=== PATIENT | female | born 1955 | race Caucasian/White ===

== ENCOUNTER 2018-01-22 12:06 | Inpatient (IN) ==
--- NOTE | 2018-01-22 12:42 | ED ---
HPI General Chief complaint: Shortness of Breath/Dyspnea Stated complaint: Numbness in face ,hands,SOB,blood in urine Time Seen by Provider: 01/22/18 12:19 Source: patient and RN notes reviewed Mode of arrival: ambulatory Limitations: no limitations History of Present Illness HPI narrative: 62-year-old female presents to the emergency department for evaluation hematuria that started yesterday. She denies any abdominal pain or flank pain. She does have history of nephrolithiasis and UTI. She also reports chronic shortness of breath as well as chronic numbness that has been ongoing since September. She states she has seen her primary care physician on multiple occasions for this. She states the numbness is "all over". She denies any weakness or syncope. She reports chills, but no documented fever. She denies any chest pain. She denies any nausea or vomiting. No diarrhea. Patient reports history of diabetes, hypertension, endometrial cancer status post hysterectomy, CKD, nephrolithiasis. Moderate severity. Onset (ago): day(s) (1) Severity: moderate Relieving factors: none Exacerbating factors: none Associated symptoms: Reports shortness of breath and other ("all over numbness") ; Denies confusion, chest pain, headaches, nausea/vomiting, rash, seizure, syncope and weakness Treatments prior to arrival: Reports none Related Data Home Medications Medication Instructions Recorded Confirmed folic acid 1 mg PO DAILY 01/22/18 01/22/18 furosemide 40 mg PO DAILY 01/22/18 01/22/18 hydrochlorothiazide 25 mg PO DAILY 01/22/18 01/22/18 sitagliptin [Januvia] 50 mg PO DAILY 01/22/18 01/22/18 Previous Rx's Medication Instructions Recorded albuterol sulfate 1 inh INHALATION Q4H PRN #8.5 g 09/28/17 amlodipine [Norvasc] 10 mg PO DAILY 60 Days #120 tab 01/27/18 hydralazine 100 mg PO TID 30 Days #90 tab 01/27/18 nystatin 1 applicatio TOPICAL BID 30 Days 01/27/18 #30 g Allergies Allergy/AdvReac Type Severity Reaction Status Date / Time Opioids - Morphine Analogues Allergy Severe Difficulty Verified 01/22/18 12:35 Breathing Opioids-Meperidine and Allergy Severe Difficulty Verified 01/22/18 12:35 Related Breathing Opioids-Methadone and Related Allergy Severe Difficulty Verified 01/22/18 12:35 Breathing codeine AdvReac Severe UNABLE TO Verified 01/22/18 12:35 SLEEP FOR DAYS meperidine AdvReac Severe UNABLE TO Verified 01/22/18 12:35 SLEEP diphenhydramine AdvReac Unknown UNABLE TO Verified 01/22/18 12:35 SLEEP Review of Systems ROS: all other systems reviewed are negative [facility] Medical History Medical History Diabetes (Acute) Urinary tract infection (Acute) Surgical History Surgical History History of hysterectomy for cancer (Acute) Family History Family History Other Family history non-contributory Social History Social History Substance History: No History of Abuse Second Hand Smoke Exposure: No Smoking Status: Former smoker How Often Do You Have a Drink Containing Alcohol: Never Recent Travel in [facility] within the Last 8 Weeks: No Recent Out of Country Travel within the Last 8 Weeks: No Immunization History Tetanus Immunization: Never Vaccinated Exam Narrative Exam Narrative: GENERAL: Well-nourished, well-developed obese female patient, afebrile. SKIN: Focused skin assessment warm/dry. Patient has large pannus. She has some erythema to the left pannus consistent with candidiasis HEAD: Normocephalic. Atraumatic. ENT: Mucosa pink and moist. No erythema or exudates. No uvular edema. No uvular , palatal, or tonsillar deviation. Airway patent. Nasal turbinates appear normal without nasal blood, purulent drainage or septal hematoma. Bilateral tympanic membranes clear without erythema or perforation. EYES: No scleral icterus. No injection or drainage. PERRLA. EOM intact NECK: Supple, trachea midline. No JVD or lymphadenopathy. CARDIOVASCULAR: Regular rate and rhythm without murmurs, gallops, or rubs. RESPIRATORY: Breath sounds equal bilaterally. No accessory muscle use. Lung sounds are clear to auscultation GASTROINTESTINAL: Abdomen soft, non-tender, nondistended. No abdominal tenderness to palpation MUSCULOSKELETAL: No cyanosis, or edema. BACK: Nontender without obvious deformity. No CVA tenderness. NEUROLOGICAL: Awake and alert. Cranial nerves II through XII intact. Motor and sensory grossly within normal limits. Five out of 5 muscle strength in all muscle groups. Normal speech. Finger to nose is normal bilaterally. Heel to forman is normal bilaterally Course Initial Documented Vital Signs Temperature 97.4 F L 01/22/18 12:11 Pulse Rate 62 01/22/18 12:11 Respiratory Rate 26 H 01/22/18 12:11 Blood Pressure 131/89 01/22/18 12:11 Pulse Oximetry 98 01/22/18 12:11 Last Documented Vital Signs Temperature 97.2 F L 01/27/18 12:00 Pulse Rate 58 L 01/27/18 14:00 Respiratory Rate 20 01/27/18 12:00 Blood Pressure 132/62 01/27/18 14:00 Pulse Oximetry 98 01/27/18 12:00 Medical Decision Making MDM Narrative Medical decision making narrative: This 62-year-old female presents to the emergency department for evaluation of hematuria since yesterday with history of nephrolithiasis and UTI as well as "all over numbness" and chronic shortness of breath that is been ongoing since September,. IV access is obtained. EKG, CBC, CMP, BNP, CK, troponin, magnesium, PTT, PT/INR, UA ordered and pending. Chest x-ray, CT abdomen/pelvis without contrast are ordered and pending. CBC shows no acute abnormality. CMP shows hyperkalemia of 6.7, BUN 79, creatinine of 2.69, worsening from previous BUN of 31 and creatinine of 1.41 on September 27. BNP is 133. CK is 80. Troponin is less than 0.02. Magnesium is 2.2. PTT is 26.0. PT/INR is 10.2/1.0. UA shows large leukocyte esterase, many WBC clumps, innumerable RBC, WBC bur is contaminated with 22 squamous epithelial cells. Chest x-ray is stable. CT abdomen/pelvis shows Multiple left renal calculi with several stones identified in the renal pelvis. There is no significant hydronephrosis; Healed granulomatous disease; Nodular lobulated mass is again evident in the right breast; Small fat-containing umbilical hernia ; Status post hysterectomy. Patient is given insulin 5 units IV, amp is dextrose, amp of bicarb, albuterol, Kayexalate for hyperkalemia. Patient is given normal saline 1 L IV bolus. Patient's primary care physician is Dr. Jose Daniel Higgins. However, he cannot be contacted as the mailbox is full for him and there is no other way to get in touch with him. Hospitalist is paged for admission. Medical Screen Exam Complete: Yes Emergency Medical Condition: Yes Differential Diagnosis Differential Diagnosis: Nephrolithiasis versus UTI versus pyelonephritis versus pneumonia versus CHF versus electrolyte abnormality Medical Records Medical records reviewed: Yes I reviewed the patient's medical records. Lab Data Result diagrams: 01/26/18 13:02 01/26/18 13:02 Lab Results 01/22/18 01/22/18 01/22/18 Range/Units 12:10 12:10 12:10 WBC 7.1 (4.0-11.0) th/mm3 RBC 3.57 L (4.00-5.30) mil/mm3 Hgb 10.1 L (11.6-15.3) gm/dL Hct 31.3 L (35.0-46.0) % MCV 87.7 (80.0-100.0) fL MCH 28.3 (27.0-34.0) pg MCHC 32.3 (32.0-36.0) % RDW 18.1 H (11.6-17.2) % Plt Count 233 (150-450) th/mm3 MPV 8.9 (7.0-11.0) fL Neut % (Auto) 77.2 H (16.0-70.0) % Lymph % (Auto) 12.5 (9.0-44.0) % [place] % (Auto) 5.2 (0.0-8.0) % Eos % (Auto) 4.3 H (0.0-4.0) % Baso % (Auto) 0.8 (0.0-2.0) % Neut # (Auto) 5.5 (1.8-7.7) th/mm3 Lymph # (Auto) 0.9 L (1.0-4.8) th/mm3 [place] # (Auto) 0.4 (0.0-0.9) th/mm3 Eos # (Auto) 0.3 (0.0-0.4) th/mm3 Baso # (Auto) 0.1 (0.0-0.2) th/mm3 WBC Differential . Differential Comment Auto diff final PT 10.2 (9.8-11.6) sec INR 1.0 Ratio APTT 26.0 (23.4-31.7) sec Sodium 141 (136-145) meq/L Potassium 6.7 H* (3.5-5.1) meq/L Chloride 120 H (98-107) meq/L Carbon Dioxide 15.9 L (21.0-32.0) meq/L Anion Gap 5 (5-15) meq/L BUN 79 H (7-18) mg/dL Creatinine 2.69 H (0.50-1.00) mg/dL Estimated GFR 18 L (>89) mL/min POC Glucose (68-110) mg/dl Random Glucose 127 H (74-106) mg/dL Hemoglobin A1c (4.3-6.0) % Calcium 8.0 L (8.5-10.1) mg/dL Phosphorus (2.5-4.9) mg/dL Magnesium 2.2 (1.5-2.5) mg/dL Total Bilirubin 0.2 (0.2-1.0) mg/dL AST 16 (15-37) U/L ALT 29 (10-53) U/L Alkaline Phosphatase 97 (45-117) U/L Total Creatine Kinase 80 (26-192) U/L Troponin I Less than 0.02 L (0.02-0.05) ng/mL B-Natriuretic Peptide (0-100) pg/mL Total Protein 8.0 (6.4-8.2) g/dL Albumin 2.6 L (3.4-5.0) g/dL Urine Color (Yellw/Straw) Urine Clarity (Clear) Urine pH (5.0-8.5) Ur Specific Joshua (1.002-1.035) Urine Protein (Neg-Trace) mg/dL Urine Glucose (UA) (Negative) mg/dL Urine Ketones (Negative) mg/dL Urine Occult Blood (Negative) Urine Nitrate (Negative) Urine Bilirubin (Negative) Urine Urobilinogen (Less than 2) mg/dL Ur Leukocyte Esterase (Negative) Urine RBC (0-3) /hpf Urine WBC (0-5) /hpf Urine WBC Clumps (None) Ur Squamous Epith Cells (0-5) /hpf Ur Transition Epith Cell (None) /hpf Ur Renal Epithelial Cell (None) /hpf Urine Mucus (Occasional) /lpf Micro UA Comment Ur Microscopic Review Urine Culture Comments Ur Random Creatinine (27-300) mg/dL U Random Total Protein (0-11.8) mg/dL Protein/Creatinin Ratio (0.00-0.14) IgG (650-1610) mg/dL IgA (85-468) mg/dL IgM (45-276) mg/dL [place]/Lambda Ratio (1.57-3.93) ALETHEA Interpretation MOIRA Screen (Neg) MOIRA Titer (Neg) MOIRA Pattern (None) MOIRA Interpretation Anti-Proteinase 3 (<1.0) AI Anti-Myeloperoxidase (<1.0) AI Complement C3 (90-180) mg/dL Complement C4 (10-40) mg/dL [place] Light Chain Anal (170-370) mg/dL Lambda Light Chain Anal (90-210) mg/dL 01/22/18 01/22/18 01/22/18 Range/Units 12:10 14:00 16:35 WBC (4.0-11.0) th/mm3 RBC (4.00-5.30) mil/mm3 Hgb (11.6-15.3) gm/dL Hct (35.0-46.0) % MCV (80.0-100.0) fL MCH (27.0-34.0) pg MCHC (32.0-36.0) % RDW (11.6-17.2) % Plt Count (150-450) th/mm3 MPV (7.0-11.0) fL Neut % (Auto) (16.0-70.0) % Lymph % (Auto) (9.0-44.0) % [place] % (Auto) (0.0-8.0) % Eos % (Auto) (0.0-4.0) % Baso % (Auto) (0.0-2.0) % Neut # (Auto) (1.8-7.7) th/mm3 Lymph # (Auto) (1.0-4.8) th/mm3 [place] # (Auto) (0.0-0.9) th/mm3 Eos # (Auto) (0.0-0.4) th/mm3 Baso # (Auto) (0.0-0.2) th/mm3 WBC Differential Differential Comment PT (9.8-11.6) sec INR Ratio APTT (23.4-31.7) sec Sodium (136-145) meq/L Potassium 5.5 H D (3.5-5.1) meq/L Chloride (98-107) meq/L Carbon Dioxide (21.0-32.0) meq/L Anion Gap (5-15) meq/L BUN (7-18) mg/dL Creatinine (0.50-1.00) mg/dL Estimated GFR (>89) mL/min POC Glucose (68-110) mg/dl Random Glucose (74-106) mg/dL Hemoglobin A1c (4.3-6.0) % Calcium (8.5-10.1) mg/dL Phosphorus (2.5-4.9) mg/dL Magnesium (1.5-2.5) mg/dL Total Bilirubin (0.2-1.0) mg/dL AST (15-37) U/L ALT (10-53) U/L Alkaline Phosphatase (45-117) U/L Total Creatine Kinase (26-192) U/L Troponin I (0.02-0.05) ng/mL B-Natriuretic Peptide 133 H (0-100) pg/mL Total Protein (6.4-8.2) g/dL Albumin (3.4-5.0) g/dL Urine Color Red (Yellw/Straw) Urine Clarity Turbid H (Clear) Urine pH 7.0 (5.0-8.5) Ur Specific Joshua 1.014 (1.002-1.035) Urine Protein 500 or greater (Neg-Trace) mg/dL Urine Glucose (UA) Negative (Negative) mg/dL Urine Ketones Negative (Negative) mg/dL Urine Occult Blood Large H (Negative) Urine Nitrate Negative (Negative) Urine Bilirubin Negative (Negative) Urine Urobilinogen Less than 2 (Less than 2) mg/dL Ur Leukocyte Esterase Large H (Negative) Urine RBC (0-3) /hpf Urine WBC (0-5) /hpf Urine WBC Clumps Many H (None) Ur Squamous Epith Cells 22 (0-5) /hpf Ur Transition Epith Cell 3 (None) /hpf Ur Renal Epithelial Cell 1 (None) /hpf Urine Mucus Few H (Occasional) /lpf Micro UA Comment Culture indicated Ur Microscopic Review Not Reportable Urine Culture Comments Culture indicated Ur Random Creatinine (27-300) mg/dL U Random Total Protein (0-11.8) mg/dL Protein/Creatinin Ratio (0.00-0.14) IgG (650-1610) mg/dL IgA (85-468) mg/dL IgM (45-276) mg/dL [place]/Lambda Ratio (1.57-3.93) ALETHEA Interpretation MOIRA Screen (Neg) MOIRA Titer (Neg) MOIRA Pattern (None) MOIRA Interpretation Anti-Proteinase 3 (<1.0) AI Anti-Myeloperoxidase (<1.0) AI Complement C3 (90-180) mg/dL Complement C4 (10-40) mg/dL [place] Light Chain Anal (170-370) mg/dL Lambda Light Chain Anal (90-210) mg/dL 01/22/18 01/23/18 01/23/18 Range/Units 21:04 05:25 05:25 WBC (4.0-11.0) th/mm3 RBC (4.00-5.30) mil/mm3 Hgb (11.6-15.3) gm/dL Hct (35.0-46.0) % MCV (80.0-100.0) fL MCH (27.0-34.0) pg MCHC (32.0-36.0) % RDW (11.6-17.2) % Plt Count (150-450) th/mm3 MPV (7.0-11.0) fL Neut % (Auto) (16.0-70.0) % Lymph % (Auto) (9.0-44.0) % [place] % (Auto) (0.0-8.0) % Eos % (Auto) (0.0-4.0) % Baso % (Auto) (0.0-2.0) % Neut # (Auto) (1.8-7.7) th/mm3 Lymph # (Auto) (1.0-4.8) th/mm3 [place] # (Auto) (0.0-0.9) th/mm3 Eos # (Auto) (0.0-0.4) th/mm3 Baso # (Auto) (0.0-0.2) th/mm3 WBC Differential Differential Comment PT (9.8-11.6) sec INR Ratio APTT (23.4-31.7) sec Sodium 143 (136-145) meq/L Potassium 5.5 H (3.5-5.1) meq/L Chloride 119 H (98-107) meq/L Carbon Dioxide 16.6 L (21.0-32.0) meq/L Anion Gap 7 (5-15) meq/L BUN 69 H (7-18) mg/dL Creatinine 2.27 H (0.50-1.00) mg/dL Estimated GFR 22 L (>89) mL/min POC Glucose 113 H (68-110) mg/dl Random Glucose 114 H (74-106) mg/dL Hemoglobin A1c 8.2 H (4.3-6.0) % Calcium 7.7 L (8.5-10.1) mg/dL Phosphorus (2.5-4.9) mg/dL Magnesium (1.5-2.5) mg/dL Total Bilirubin (0.2-1.0) mg/dL AST (15-37) U/L ALT (10-53) U/L Alkaline Phosphatase (45-117) U/L Total Creatine Kinase (26-192) U/L Troponin I (0.02-0.05) ng/mL B-Natriuretic Peptide (0-100) pg/mL Total Protein (6.4-8.2) g/dL Albumin (3.4-5.0) g/dL Urine Color (Yellw/Straw) Urine Clarity (Clear) Urine pH (5.0-8.5) Ur Specific [place] (1.002-1.035) Urine Protein (Neg-Trace) mg/dL Urine Glucose (UA) (Negative) mg/dL Urine Ketones (Negative) mg/dL Urine Occult Blood (Negative) Urine Nitrate (Negative) Urine Bilirubin (Negative) Urine Urobilinogen (Less than 2) mg/dL Ur Leukocyte Esterase (Negative) Urine RBC (0-3) /hpf Urine WBC (0-5) /hpf Urine WBC Clumps (None) Ur Squamous Epith Cells (0-5) /hpf Ur Transition Epith Cell (None) /hpf Ur Renal Epithelial Cell (None) /hpf Urine Mucus (Occasional) /lpf Micro UA Comment Ur Microscopic Review Urine Culture Comments Ur Random Creatinine (27-300) mg/dL U Random Total Protein (0-11.8) mg/dL Protein/Creatinin Ratio (0.00-0.14) IgG (650-1610) mg/dL IgA (85-468) mg/dL IgM (45-276) mg/dL [place]/Lambda Ratio (1.57-3.93) ALETHEA Interpretation MOIRA Screen (Neg) MOIRA Titer (Neg) MOIRA Pattern (None) MOIRA Interpretation Anti-Proteinase 3 (<1.0) AI Anti-Myeloperoxidase (<1.0) AI Complement C3 (90-180) mg/dL Complement C4 (10-40) mg/dL [place] Light Chain Anal (170-370) mg/dL Lambda Light Chain Anal (90-210) mg/dL 01/23/18 01/23/18 01/23/18 Range/Units 11:26 11:26 11:51 WBC 7.3 (4.0-11.0) th/mm3 RBC 3.39 L (4.00-5.30) mil/mm3 Hgb 9.7 L (11.6-15.3) gm/dL Hct 29.2 L (35.0-46.0) % MCV 86.1 (80.0-100.0) fL MCH 28.7 (27.0-34.0) pg MCHC 33.3 (32.0-36.0) % RDW 18.3 H (11.6-17.2) % Plt Count 214 (150-450) th/mm3 MPV 9.1 (7.0-11.0) fL Neut % (Auto) 77.9 H (16.0-70.0) % Lymph % (Auto) 10.8 (9.0-44.0) % [place] % (Auto) 5.2 (0.0-8.0) % Eos % (Auto) 5.2 H (0.0-4.0) % Baso % (Auto) 0.9 (0.0-2.0) % Neut # (Auto) 5.7 (1.8-7.7) th/mm3 Lymph # (Auto) 0.8 L (1.0-4.8) th/mm3 [place] # (Auto) 0.4 (0.0-0.9) th/mm3 Eos # (Auto) 0.4 (0.0-0.4) th/mm3 Baso # (Auto) 0.1 (0.0-0.2) th/mm3 WBC Differential . Differential Comment Auto diff final PT (9.8-11.6) sec INR Ratio APTT (23.4-31.7) sec Sodium 141 (136-145) meq/L Potassium 5.1 (3.5-5.1) meq/L Chloride 117 H (98-107) meq/L Carbon Dioxide 18.8 L (21.0-32.0) meq/L Anion Gap 5 (5-15) meq/L BUN 63 H (7-18) mg/dL Creatinine 2.10 H (0.50-1.00) mg/dL Estimated GFR 24 L (>89) mL/min POC Glucose 199 H (68-110) mg/dl Random Glucose 199 H (74-106) mg/dL Hemoglobin A1c (4.3-6.0) % Calcium 8.0 L (8.5-10.1) mg/dL Phosphorus (2.5-4.9) mg/dL Magnesium (1.5-2.5) mg/dL Total Bilirubin 0.3 (0.2-1.0) mg/dL AST 18 (15-37) U/L ALT 27 (10-53) U/L Alkaline Phosphatase 100 (45-117) U/L Total Creatine Kinase (26-192) U/L Troponin I (0.02-0.05) ng/mL B-Natriuretic Peptide (0-100) pg/mL Total Protein 7.7 (6.4-8.2) g/dL Albumin 2.4 L (3.4-5.0) g/dL Urine Color (Yellw/Straw) Urine Clarity (Clear) Urine pH (5.0-8.5) Ur Specific [place] (1.002-1.035) Urine Protein (Neg-Trace) mg/dL Urine Glucose (UA) (Negative) mg/dL Urine Ketones (Negative) mg/dL Urine Occult Blood (Negative) Urine Nitrate (Negative) Urine Bilirubin (Negative) Urine Urobilinogen (Less than 2) mg/dL Ur Leukocyte Esterase (Negative) Urine RBC (0-3) /hpf Urine WBC (0-5) /hpf Urine WBC Clumps (None) Ur Squamous Epith Cells (0-5) /hpf Ur Transition Epith Cell (None) /hpf Ur Renal Epithelial Cell (None) /hpf Urine Mucus (Occasional) /lpf Micro UA Comment Ur Microscopic Review Urine Culture Comments Ur Random Creatinine (27-300) mg/dL U Random Total Protein (0-11.8) mg/dL Protein/Creatinin Ratio (0.00-0.14) IgG (650-1610) mg/dL IgA (85-468) mg/dL IgM (45-276) mg/dL [place]/Lambda Ratio (1.57-3.93) ALETHEA Interpretation MOIRA Screen (Neg) MOIRA Titer (Neg) MOIRA Pattern (None) MOIRA Interpretation Anti-Proteinase 3 (<1.0) AI Anti-Myeloperoxidase (<1.0) AI Complement C3 (90-180) mg/dL Complement C4 (10-40) mg/dL [place] Light Chain Anal (170-370) mg/dL Lambda Light Chain Anal (90-210) mg/dL 01/23/18 01/23/18 01/23/18 Range/Units 15:07 16:21 18:15 WBC (4.0-11.0) th/mm3 RBC (4.00-5.30) mil/mm3 Hgb (11.6-15.3) gm/dL Hct (35.0-46.0) % MCV (80.0-100.0) fL MCH (27.0-34.0) pg MCHC (32.0-36.0) % RDW (11.6-17.2) % Plt Count (150-450) th/mm3 MPV (7.0-11.0) fL Neut % (Auto) (16.0-70.0) % Lymph % (Auto) (9.0-44.0) % [place] % (Auto) (0.0-8.0) % Eos % (Auto) (0.0-4.0) % Baso % (Auto) (0.0-2.0) % Neut # (Auto) (1.8-7.7) th/mm3 Lymph # (Auto) (1.0-4.8) th/mm3 [place] # (Auto) (0.0-0.9) th/mm3 Eos # (Auto) (0.0-0.4) th/mm3 Baso # (Auto) (0.0-0.2) th/mm3 WBC Differential Differential Comment PT (9.8-11.6) sec INR Ratio APTT (23.4-31.7) sec Sodium (136-145) meq/L Potassium (3.5-5.1) meq/L Chloride (98-107) meq/L Carbon Dioxide (21.0-32.0) meq/L Anion Gap (5-15) meq/L BUN (7-18) mg/dL Creatinine (0.50-1.00) mg/dL Estimated GFR (>89) mL/min POC Glucose 135 H (68-110) mg/dl Random Glucose (74-106) mg/dL Hemoglobin A1c (4.3-6.0) % Calcium (8.5-10.1) mg/dL Phosphorus 4.3 (2.5-4.9) mg/dL Magnesium (1.5-2.5) mg/dL Total Bilirubin (0.2-1.0) mg/dL AST (15-37) U/L ALT (10-53) U/L Alkaline Phosphatase (45-117) U/L Total Creatine Kinase (26-192) U/L Troponin I (0.02-0.05) ng/mL B-Natriuretic Peptide (0-100) pg/mL Total Protein (6.4-8.2) g/dL Albumin (3.4-5.0) g/dL Urine Color ([place]ell[place]/Straw) Urine Clarity (Clear) Urine pH (5.0-8.5) Ur Specific [place] (1.002-1.035) Urine Protein (Neg-Trace) mg/dL Urine Glucose (UA) (Negative) mg/dL Urine Ketones (Negative) mg/dL Urine Occult Blood (Negative) Urine Nitrate (Negative) Urine Bilirubin (Negative) Urine Urobilinogen (Less than 2) mg/dL Ur Leukocyte Esterase (Negative) Urine RBC (0-3) /hpf Urine WBC (0-5) /hpf Urine WBC Clumps (None) Ur Squamous Epith Cells (0-5) /hpf Ur Transition Epith Cell (None) /hpf Ur Renal Epithelial Cell (None) /hpf Urine Mucus (Occasional) /lpf Micro UA Comment Ur Microscopic Review Urine Culture Comments Ur Random Creatinine 64 (27-300) mg/dL U Random Total Protein 310.9 H (0-11.8) mg/dL Protein/Creatinin Ratio 4.86 H (0.00-0.14) IgG 2030 H (650-1610) mg/dL IgA 426 (85-468) mg/dL IgM 63 (45-276) mg/dL [place]/Lambda Ratio 1.75 (1.57-3.93) ALETHEA Interpretation MOIRA Screen (Neg) MOIRA Titer (Neg) MOIRA Pattern (None) MOIRA Interpretation Anti-Proteinase 3 (<1.0) AI Anti-Myeloperoxidase (<1.0) AI Complement C3 111 (90-180) mg/dL Complement C4 29 (10-40) mg/dL [place] Light Chain Anal 495 H (170-370) mg/dL Lambda Light Chain Anal 283 H (90-210) mg/dL 01/23/18 01/24/18 01/24/18 Range/Units 20:50 04:56 04:56 WBC (4.0-11.0) th/mm3 RBC (4.00-5.30) mil/mm3 Hgb (11.6-15.3) gm/dL Hct (35.0-46.0) % MCV (80.0-100.0) fL MCH (27.0-34.0) pg MCHC (32.0-36.0) % RDW (11.6-17.2) % Plt Count (150-450) th/mm3 MPV (7.0-11.0) fL Neut % (Auto) (16.0-70.0) % Lymph % (Auto) (9.0-44.0) % [place] % (Auto) (0.0-8.0) % Eos % (Auto) (0.0-4.0) % Baso % (Auto) (0.0-2.0) % Neut # (Auto) (1.8-7.7) th/mm3 Lymph # (Auto) (1.0-4.8) th/mm3 [place] # (Auto) (0.0-0.9) th/mm3 Eos # (Auto) (0.0-0.4) th/mm3 Baso # (Auto) (0.0-0.2) th/mm3 WBC Differential Differential Comment PT (9.8-11.6) sec INR Ratio APTT (23.4-31.7) sec Sodium 143 (136-145) meq/L Potassium 5.0 (3.5-5.1) meq/L Chloride 116 H (98-107) meq/L Carbon Dioxide 19.9 L (21.0-32.0) meq/L Anion Gap 7 (5-15) meq/L BUN 58 H (7-18) mg/dL Creatinine 2.04 H (0.50-1.00) mg/dL Estimated GFR 25 L (>89) mL/min POC Glucose 160 H (68-110) mg/dl Random Glucose 121 H (74-106) mg/dL Hemoglobin A1c (4.3-6.0) % Calcium 8.1 L (8.5-10.1) mg/dL Phosphorus (2.5-4.9) mg/dL Magnesium (1.5-2.5) mg/dL Total Bilirubin (0.2-1.0) mg/dL AST (15-37) U/L ALT (10-53) U/L Alkaline Phosphatase (45-117) U/L Total Creatine Kinase (26-192) U/L Troponin I (0.02-0.05) ng/mL B-Natriuretic Peptide (0-100) pg/mL Total Protein (6.4-8.2) g/dL Albumin (3.4-5.0) g/dL Urine Color (Yellw/Straw) Urine Clarity (Clear) Urine pH (5.0-8.5) Ur Specific [place] (1.002-1.035) Urine Protein (Neg-Trace) mg/dL Urine Glucose (UA) (Negative) mg/dL Urine Ketones (Negative) mg/dL Urine Occult Blood (Negative) Urine Nitrate (Negative) Urine Bilirubin (Negative) Urine Urobilinogen (Less than 2) mg/dL Ur Leukocyte Esterase (Negative) Urine RBC (0-3) /hpf Urine WBC (0-5) /hpf Urine WBC Clumps (None) Ur Squamous Epith Cells (0-5) /hpf Ur Transition Epith Cell (None) /hpf Ur Renal Epithelial Cell (None) /hpf Urine Mucus (Occasional) /lpf Micro UA Comment Ur Microscopic Review Urine Culture Comments Ur Random Creatinine (27-300) mg/dL U Random Total Protein (0-11.8) mg/dL Protein/Creatinin Ratio (0.00-0.14) IgG (650-1610) mg/dL IgA (85-468) mg/dL IgM (45-276) mg/dL [place]/Lambda Ratio (1.57-3.93) ALETHEA Interpretation MOIRA Screen Pos H (Neg) MOIRA Titer 1:80 H (Neg) MOIRA Pattern Diffuse H (None) MOIAR Interpretation Anti-Proteinase 3 (<1.0) AI Anti-Myeloperoxidase (<1.0) AI Complement C3 (90-180) mg/dL Complement C4 (10-40) mg/dL [place] Light Chain Anal (170-370) mg/dL Lambda Light Chain Anal (90-210) mg/dL 01/24/18 01/24/18 01/24/18 Range/Units 11:45 11:45 11:45 WBC 7.0 (4.0-11.0) th/mm3 RBC 3.47 L (4.00-5.30) mil/mm3 Hgb 9.8 L (11.6-15.3) gm/dL Hct 29.9 L (35.0-46.0) % MCV 86.3 (80.0-100.0) fL MCH 28.3 (27.0-34.0) pg MCHC 32.8 (32.0-36.0) % RDW 17.6 H (11.6-17.2) % Plt Count 192 (150-450) th/mm3 MPV 9.5 (7.0-11.0) fL Neut % (Auto) 76.1 H (16.0-70.0) % Lymph % (Auto) 12.5 (9.0-44.0) % [place] % (Auto) 4.9 (0.0-8.0) % Eos % (Auto) 5.8 H (0.0-4.0) % Baso % (Auto) 0.7 (0.0-2.0) % Neut # (Auto) 5.3 (1.8-7.7) th/mm3 Lymph # (Auto) 0.9 L (1.0-4.8) th/mm3 [place] # (Auto) 0.3 (0.0-0.9) th/mm3 Eos # (Auto) 0.4 (0.0-0.4) th/mm3 Baso # (Auto) 0.0 (0.0-0.2) th/mm3 WBC Differential . Differential Comment Auto diff final PT (9.8-11.6) sec INR Ratio APTT (23.4-31.7) sec Sodium 142 (136-145) meq/L Potassium 5.0 (3.5-5.1) meq/L Chloride 114 H (98-107) meq/L Carbon Dioxide 21.0 (21.0-32.0) meq/L Anion Gap 7 (5-15) meq/L BUN 54 H (7-18) mg/dL Creatinine 1.97 H (0.50-1.00) mg/dL Estimated GFR 26 L (>89) mL/min POC Glucose (68-110) mg/dl Random Glucose 178 H (74-106) mg/dL Hemoglobin A1c (4.3-6.0) % Calcium 8.3 L (8.5-10.1) mg/dL Phosphorus (2.5-4.9) mg/dL Magnesium (1.5-2.5) mg/dL Total Bilirubin 0.2 (0.2-1.0) mg/dL AST 12 L (15-37) U/L ALT 25 (10-53) U/L Alkaline Phosphatase 101 (45-117) U/L Total Creatine Kinase (26-192) U/L Troponin I (0.02-0.05) ng/mL B-Natriuretic Peptide (0-100) pg/mL Total Protein 7.7 (6.4-8.2) g/dL Albumin 2.5 L (3.4-5.0) g/dL Urine Color (Yellw/Straw) Urine Clarity (Clear) Urine pH (5.0-8.5) Ur Specific [place] (1.002-1.035) Urine Protein (Neg-Trace) mg/dL Urine Glucose (UA) (Negative) mg/dL Urine Ketones (Negative) mg/dL Urine Occult Blood (Negative) Urine Nitrate (Negative) Urine Bilirubin (Negative) Urine Urobilinogen (Less than 2) mg/dL Ur Leukocyte Esterase (Negative) Urine RBC (0-3) /hpf Urine WBC (0-5) /hpf Urine WBC Clumps (None) Ur Squamous Epith Cells (0-5) /hpf Ur Transition Epith Cell (None) /hpf Ur Renal Epithelial Cell (None) /hpf Urine Mucus (Occasional) /lpf Micro UA Comment Ur Microscopic Review Urine Culture Comments Ur Random Creatinine (27-300) mg/dL U Random Total Protein (0-11.8) mg/dL Protein/Creatinin Ratio (0.00-0.14) IgG (650-1610) mg/dL IgA (85-468) mg/dL IgM (45-276) mg/dL [place]/Lambda Ratio (1.57-3.93) ALETHEA Interpretation MOIRA Screen (Neg) MOIRA Titer (Neg) MOIRA Pattern (None) MOIRA Interpretation Anti-Proteinase 3 Less than 1.0 (<1.0) AI Anti-Myeloperoxidase Less than 1.0 (<1.0) AI Complement C3 (90-180) mg/dL Complement C4 (10-40) mg/dL [place] Light Chain Anal (170-370) mg/dL Lambda Light Chain Anal (90-210) mg/dL 01/24/18 01/24/18 01/24/18 Range/Units 12:29 17:27 20:12 WBC (4.0-11.0) th/mm3 RBC (4.00-5.30) mil/mm3 Hgb (11.6-15.3) gm/dL Hct (35.0-46.0) % MCV (80.0-100.0) fL MCH (27.0-34.0) pg MCHC (32.0-36.0) % RDW (11.6-17.2) % Plt Count (150-450) th/mm3 MPV (7.0-11.0) fL Neut % (Auto) (16.0-70.0) % Lymph % (Auto) (9.0-44.0) % [place] % (Auto) (0.0-8.0) % Eos % (Auto) (0.0-4.0) % Baso % (Auto) (0.0-2.0) % Neut # (Auto) (1.8-7.7) th/mm3 Lymph # (Auto) (1.0-4.8) th/mm3 [place] # (Auto) (0.0-0.9) th/mm3 Eos # (Auto) (0.0-0.4) th/mm3 Baso # (Auto) (0.0-0.2) th/mm3 WBC Differential Differential Comment PT (9.8-11.6) sec INR Ratio APTT (23.4-31.7) sec Sodium (136-145) meq/L Potassium (3.5-5.1) meq/L Chloride (98-107) meq/L Carbon Dioxide (21.0-32.0) meq/L Anion Gap (5-15) meq/L BUN (7-18) mg/dL Creatinine (0.50-1.00) mg/dL Estimated GFR (>89) mL/min POC Glucose 213 H 84 115 H (68-110) mg/dl Random Glucose (74-106) mg/dL Hemoglobin A1c (4.3-6.0) % Calcium (8.5-10.1) mg/dL Phosphorus (2.5-4.9) mg/dL Magnesium (1.5-2.5) mg/dL Total Bilirubin (0.2-1.0) mg/dL AST (15-37) U/L ALT (10-53) U/L Alkaline Phosphatase (45-117) U/L Total Creatine Kinase (26-192) U/L Troponin I (0.02-0.05) ng/mL B-Natriuretic Peptide (0-100) pg/mL Total Protein (6.4-8.2) g/dL Albumin (3.4-5.0) g/dL Urine Color (Yellw/Straw) Urine Clarity (Clear) Urine pH (5.0-8.5) Ur Specific [place] (1.002-1.035) Urine Protein (Neg-Trace) mg/dL Urine Glucose (UA) (Negative) mg/dL Urine Ketones (Negative) mg/dL Urine Occult Blood (Negative) Urine Nitrate (Negative) Urine Bilirubin (Negative) Urine Urobilinogen (Less than 2) mg/dL Ur Leukocyte Esterase (Negative) Urine RBC (0-3) /hpf Urine WBC (0-5) /hpf Urine WBC Clumps (None) Ur Squamous Epith Cells (0-5) /hpf Ur Transition Epith Cell (None) /hpf Ur Renal Epithelial Cell (None) /hpf Urine Mucus (Occasional) /lpf Micro UA Comment Ur Microscopic Review Urine Culture Comments Ur Random Creatinine (27-300) mg/dL U Random Total Protein (0-11.8) mg/dL Protein/Creatinin Ratio (0.00-0.14) IgG (650-1610) mg/dL IgA (85-468) mg/dL IgM (45-276) mg/dL [place]/Lambda Ratio (1.57-3.93) ALETHEA Interpretation MOIRA Screen (Neg) MOIRA Titer (Neg) MOIRA Pattern (None) MOIRA Interpretation Anti-Proteinase 3 (<1.0) AI Anti-Myeloperoxidase (<1.0) AI Complement C3 (90-180) mg/dL Complement C4 (10-40) mg/dL [place] Light Chain Anal (170-370) mg/dL Lambda Light Chain Anal (90-210) mg/dL 01/25/18 01/25/18 01/25/18 Range/Units 00:05 08:17 10:46 WBC 7.1 (4.0-11.0) th/mm3 RBC 3.75 L (4.00-5.30) mil/mm3 Hgb 10.5 L (11.6-15.3) gm/dL Hct 32.6 L (35.0-46.0) % MCV 87.0 (80.0-100.0) fL MCH 28.1 (27.0-34.0) pg MCHC 32.3 (32.0-36.0) % RDW 18.1 H (11.6-17.2) % Plt Count 208 (150-450) th/mm3 MPV 9.5 (7.0-11.0) fL Neut % (Auto) 76.2 H (16.0-70.0) % Lymph % (Auto) 11.6 (9.0-44.0) % [place] % (Auto) 5.5 (0.0-8.0) % Eos % (Auto) 6.1 H (0.0-4.0) % Baso % (Auto) 0.6 (0.0-2.0) % Neut # (Auto) 5.4 (1.8-7.7) th/mm3 Lymph # (Auto) 0.8 L (1.0-4.8) th/mm3 [place] # (Auto) 0.4 (0.0-0.9) th/mm3 Eos # (Auto) 0.4 (0.0-0.4) th/mm3 Baso # (Auto) 0.0 (0.0-0.2) th/mm3 WBC Differential . Differential Comment Auto diff final PT (9.8-11.6) sec INR Ratio APTT (23.4-31.7) sec Sodium (136-145) meq/L Potassium (3.5-5.1) meq/L Chloride (98-107) meq/L Carbon Dioxide (21.0-32.0) meq/L Anion Gap (5-15) meq/L BUN (7-18) mg/dL Creatinine (0.50-1.00) mg/dL Estimated GFR (>89) mL/min POC Glucose 121 H 122 H (68-110) mg/dl Random Glucose (74-106) mg/dL Hemoglobin A1c (4.3-6.0) % Calcium (8.5-10.1) mg/dL Phosphorus (2.5-4.9) mg/dL Magnesium (1.5-2.5) mg/dL Total Bilirubin (0.2-1.0) mg/dL AST (15-37) U/L ALT (10-53) U/L Alkaline Phosphatase (45-117) U/L Total Creatine Kinase (26-192) U/L Troponin I (0.02-0.05) ng/mL B-Natriuretic Peptide (0-100) pg/mL Total Protein (6.4-8.2) g/dL Albumin (3.4-5.0) g/dL Urine Color (Yellw/Straw) Urine Clarity (Clear) Urine pH (5.0-8.5) Ur Specific [place] (1.002-1.035) Urine Protein (Neg-Trace) mg/dL Urine Glucose (UA) (Negative) mg/dL Urine Ketones (Negative) mg/dL Urine Occult Blood (Negative) Urine Nitrate (Negative) Urine Bilirubin (Negative) Urine Urobilinogen (Less than 2) mg/dL Ur Leukocyte Esterase (Negative) Urine RBC (0-3) /hpf Urine WBC (0-5) /hpf Urine WBC Clumps (None) Ur Squamous Epith Cells (0-5) /hpf Ur Transition Epith Cell (None) /hpf Ur Renal Epithelial Cell (None) /hpf Urine Mucus (Occasional) /lpf Micro UA Comment Ur Microscopic Review Urine Culture Comments Ur Random Creatinine (27-300) mg/dL U Random Total Protein (0-11.8) mg/dL Protein/Creatinin Ratio (0.00-0.14) IgG (650-1610) mg/dL IgA (85-468) mg/dL IgM (45-276) mg/dL [place]/Lambda Ratio (1.57-3.93) ALETHEA Interpretation MOIRA Screen (Neg) MOIRA Titer (Neg) MOIRA Pattern (None) MOIRA Interpretation Anti-Proteinase 3 (<1.0) AI Anti-Myeloperoxidase (<1.0) AI Complement C3 (90-180) mg/dL Complement C4 (10-40) mg/dL [place] Light Chain Anal (170-370) mg/dL Lambda Light Chain Anal (90-210) mg/dL 01/25/18 01/25/18 01/25/18 Range/Units 10:46 11:58 16:54 WBC (4.0-11.0) th/mm3 RBC (4.00-5.30) mil/mm3 Hgb (11.6-15.3) gm/dL Hct (35.0-46.0) % MCV (80.0-100.0) fL MCH (27.0-34.0) pg MCHC (32.0-36.0) % RDW (11.6-17.2) % Plt Count (150-450) th/mm3 MPV (7.0-11.0) fL Neut % (Auto) (16.0-70.0) % Lymph % (Auto) (9.0-44.0) % [place] % (Auto) (0.0-8.0) % Eos % (Auto) (0.0-4.0) % Baso % (Auto) (0.0-2.0) % Neut # (Auto) (1.8-7.7) th/mm3 Lymph # (Auto) (1.0-4.8) th/mm3 [place] # (Auto) (0.0-0.9) th/mm3 Eos # (Auto) (0.0-0.4) th/mm3 Baso # (Auto) (0.0-0.2) th/mm3 WBC Differential Differential Comment PT (9.8-11.6) sec INR Ratio APTT (23.4-31.7) sec Sodium 141 (136-145) meq/L Potassium 4.7 (3.5-5.1) meq/L Chloride 112 H (98-107) meq/L Carbon Dioxide 21.9 (21.0-32.0) meq/L Anion Gap 7 (5-15) meq/L BUN 49 H (7-18) mg/dL Creatinine 1.93 H (0.50-1.00) mg/dL Estimated GFR 26 L (>89) mL/min POC Glucose 180 H 120 H (68-110) mg/dl Random Glucose 165 H (74-106) mg/dL Hemoglobin A1c (4.3-6.0) % Calcium 8.5 (8.5-10.1) mg/dL Phosphorus (2.5-4.9) mg/dL Magnesium (1.5-2.5) mg/dL Total Bilirubin 0.2 (0.2-1.0) mg/dL AST 13 L (15-37) U/L ALT 24 (10-53) U/L Alkaline Phosphatase 108 (45-117) U/L Total Creatine Kinase (26-192) U/L Troponin I (0.02-0.05) ng/mL B-Natriuretic Peptide (0-100) pg/mL Total Protein 8.2 (6.4-8.2) g/dL Albumin 2.5 L (3.4-5.0) g/dL Urine Color (Yellw/Straw) Urine Clarity (Clear) Urine pH (5.0-8.5) Ur Specific [place] (1.002-1.035) Urine Protein (Neg-Trace) mg/dL Urine Glucose (UA) (Negative) mg/dL Urine Ketones (Negative) mg/dL Urine Occult Blood (Negative) Urine Nitrate (Negative) Urine Bilirubin (Negative) Urine Urobilinogen (Less than 2) mg/dL Ur Leukocyte Esterase (Negative) Urine RBC (0-3) /hpf Urine WBC (0-5) /hpf Urine WBC Clumps (None) Ur Squamous Epith Cells (0-5) /hpf Ur Transition Epith Cell (None) /hpf Ur Renal Epithelial Cell (None) /hpf Urine Mucus (Occasional) /lpf Micro UA Comment Ur Microscopic Review Urine Culture Comments Ur Random Creatinine (27-300) mg/dL U Random Total Protein (0-11.8) mg/dL Protein/Creatinin Ratio (0.00-0.14) IgG (650-1610) mg/dL IgA (85-468) mg/dL IgM (45-276) mg/dL [place]/Lambda Ratio (1.57-3.93) ALETHEA Interpretation MOIRA Screen (Neg) MOIRA Titer (Neg) MOIRA Pattern (None) MOIRA Interpretation Anti-Proteinase 3 (<1.0) AI Anti-Myeloperoxidase (<1.0) AI Complement C3 (90-180) mg/dL Complement C4 (10-40) mg/dL [place] Light Chain Anal (170-370) mg/dL Lambda Light Chain Anal (90-210) mg/dL 01/25/18 01/25/18 01/26/18 Range/Units 21:18 23:51 07:49 WBC (4.0-11.0) th/mm3 RBC (4.00-5.30) mil/mm3 Hgb (11.6-15.3) gm/dL Hct (35.0-46.0) % MCV (80.0-100.0) fL MCH (27.0-34.0) pg MCHC (32.0-36.0) % RDW (11.6-17.2) % Plt Count (150-450) th/mm3 MPV (7.0-11.0) fL Neut % (Auto) (16.0-70.0) % Lymph % (Auto) (9.0-44.0) % [place] % (Auto) (0.0-8.0) % Eos % (Auto) (0.0-4.0) % Baso % (Auto) (0.0-2.0) % Neut # (Auto) (1.8-7.7) th/mm3 Lymph # (Auto) (1.0-4.8) th/mm3 [place] # (Auto) (0.0-0.9) th/mm3 Eos # (Auto) (0.0-0.4) th/mm3 Baso # (Auto) (0.0-0.2) th/mm3 WBC Differential Differential Comment PT (9.8-11.6) sec INR Ratio APTT (23.4-31.7) sec Sodium (136-145) meq/L Potassium (3.5-5.1) meq/L Chloride (98-107) meq/L Carbon Dioxide (21.0-32.0) meq/L Anion Gap (5-15) meq/L BUN (7-18) mg/dL Creatinine (0.50-1.00) mg/dL Estimated GFR (>89) mL/min POC Glucose 173 H 163 H 136 H (68-110) mg/dl Random Glucose (74-106) mg/dL Hemoglobin A1c (4.3-6.0) % Calcium (8.5-10.1) mg/dL Phosphorus (2.5-4.9) mg/dL Magnesium (1.5-2.5) mg/dL Total Bilirubin (0.2-1.0) mg/dL AST (15-37) U/L ALT (10-53) U/L Alkaline Phosphatase (45-117) U/L Total Creatine Kinase (26-192) U/L Troponin I (0.02-0.05) ng/mL B-Natriuretic Peptide (0-100) pg/mL Total Protein (6.4-8.2) g/dL Albumin (3.4-5.0) g/dL Urine Color (Yellw/Straw) Urine Clarity (Clear) Urine pH (5.0-8.5) Ur Specific [place] (1.002-1.035) Urine Protein (Neg-Trace) mg/dL Urine Glucose (UA) (Negative) mg/dL Urine Ketones (Negative) mg/dL Urine Occult Blood (Negative) Urine Nitrate (Negative) Urine Bilirubin (Negative) Urine Urobilinogen (Less than 2) mg/dL Ur Leukocyte Esterase (Negative) Urine RBC (0-3) /hpf Urine WBC (0-5) /hpf Urine WBC Clumps (None) Ur Squamous Epith Cells (0-5) /hpf Ur Transition Epith Cell (None) /hpf Ur Renal Epithelial Cell (None) /hpf Urine Mucus (Occasional) /lpf Micro UA Comment Ur Microscopic Review Urine Culture Comments Ur Random Creatinine (27-300) mg/dL U Random Total Protein (0-11.8) mg/dL Protein/Creatinin Ratio (0.00-0.14) IgG (650-1610) mg/dL IgA (85-468) mg/dL IgM (45-276) mg/dL [place]/Lambda Ratio (1.57-3.93) ALETHEA Interpretation MOIRA Screen (Neg) MOIRA Titer (Neg) MOIRA Pattern (None) MOIRA Interpretation Anti-Proteinase 3 (<1.0) AI Anti-Myeloperoxidase (<1.0) AI Complement C3 (90-180) mg/dL Complement C4 (10-40) mg/dL [place] Light Chain Anal (170-370) mg/dL Lambda Light Chain Anal (90-210) mg/dL 01/26/18 01/26/18 01/26/18 Range/Units 12:31 13:02 13:02 WBC 8.4 (4.0-11.0) th/mm3 RBC 3.66 L (4.00-5.30) mil/mm3 Hgb 10.4 L (11.6-15.3) gm/dL Hct 31.6 L (35.0-46.0) % MCV 86.3 (80.0-100.0) fL MCH 28.5 (27.0-34.0) pg MCHC 33.1 (32.0-36.0) % RDW 17.9 H (11.6-17.2) % Plt Count 195 (150-450) th/mm3 MPV 9.4 (7.0-11.0) fL Neut % (Auto) 76.4 H (16.0-70.0) % Lymph % (Auto) 12.2 (9.0-44.0) % [place] % (Auto) 5.1 (0.0-8.0) % Eos % (Auto) 5.7 H (0.0-4.0) % Baso % (Auto) 0.6 (0.0-2.0) % Neut # (Auto) 6.4 (1.8-7.7) th/mm3 Lymph # (Auto) 1.0 (1.0-4.8) th/mm3 [place] # (Auto) 0.4 (0.0-0.9) th/mm3 Eos # (Auto) 0.5 H (0.0-0.4) th/mm3 Baso # (Auto) 0.0 (0.0-0.2) th/mm3 WBC Differential . Differential Comment Auto diff final PT (9.8-11.6) sec INR Ratio APTT (23.4-31.7) sec Sodium 140 (136-145) meq/L Potassium 4.9 (3.5-5.1) meq/L Chloride 110 H (98-107) meq/L Carbon Dioxide 21.3 (21.0-32.0) meq/L Anion Gap 9 (5-15) meq/L BUN 50 H (7-18) mg/dL Creatinine 1.96 H (0.50-1.00) mg/dL Estimated GFR 26 L (>89) mL/min POC Glucose 152 H (68-110) mg/dl Random Glucose 136 H (74-106) mg/dL Hemoglobin A1c (4.3-6.0) % Calcium 8.7 (8.5-10.1) mg/dL Phosphorus (2.5-4.9) mg/dL Magnesium (1.5-2.5) mg/dL Total Bilirubin 0.2 (0.2-1.0) mg/dL AST 14 L (15-37) U/L ALT 24 (10-53) U/L Alkaline Phosphatase 105 (45-117) U/L Total Creatine Kinase (26-192) U/L Troponin I (0.02-0.05) ng/mL B-Natriuretic Peptide (0-100) pg/mL Total Protein 8.4 H (6.4-8.2) g/dL Albumin 2.6 L (3.4-5.0) g/dL Urine Color (Yellw/Straw) Urine Clarity (Clear) Urine pH (5.0-8.5) Ur Specific [place] (1.002-1.035) Urine Protein (Neg-Trace) mg/dL Urine Glucose (UA) (Negative) mg/dL Urine Ketones (Negative) mg/dL Urine Occult Blood (Negative) Urine Nitrate (Negative) Urine Bilirubin (Negative) Urine Urobilinogen (Less than 2) mg/dL Ur Leukocyte Esterase (Negative) Urine RBC (0-3) /hpf Urine WBC (0-5) /hpf Urine WBC Clumps (None) Ur Squamous Epith Cells (0-5) /hpf Ur Transition Epith Cell (None) /hpf Ur Renal Epithelial Cell (None) /hpf Urine Mucus (Occasional) /lpf Micro UA Comment Ur Microscopic Review Urine Culture Comments Ur Random Creatinine (27-300) mg/dL U Random Total Protein (0-11.8) mg/dL Protein/Creatinin Ratio (0.00-0.14) IgG (650-1610) mg/dL IgA (85-468) mg/dL IgM (45-276) mg/dL [place]/Lambda Ratio (1.57-3.93) ALETHEA Interpretation MOIRA Screen (Neg) MOIRA Titer (Neg) MOIRA Pattern (None) MOIRA Interpretation Anti-Proteinase 3 (<1.0) AI Anti-Myeloperoxidase (<1.0) AI Complement C3 (90-180) mg/dL Complement C4 (10-40) mg/dL [place] Light Chain Anal (170-370) mg/dL Lambda Light Chain Anal (90-210) mg/dL 01/26/18 01/26/18 01/27/18 Range/Units 16:54 20:00 08:27 WBC (4.0-11.0) th/mm3 RBC (4.00-5.30) mil/mm3 Hgb (11.6-15.3) gm/dL Hct (35.0-46.0) % MCV (80.0-100.0) fL MCH (27.0-34.0) pg MCHC (32.0-36.0) % RDW (11.6-17.2) % Plt Count (150-450) th/mm3 MPV (7.0-11.0) fL Neut % (Auto) (16.0-70.0) % Lymph % (Auto) (9.0-44.0) % [place] % (Auto) (0.0-8.0) % Eos % (Auto) (0.0-4.0) % Baso % (Auto) (0.0-2.0) % Neut # (Auto) (1.8-7.7) th/mm3 Lymph # (Auto) (1.0-4.8) th/mm3 [place] # (Auto) (0.0-0.9) th/mm3 Eos # (Auto) (0.0-0.4) th/mm3 Baso # (Auto) (0.0-0.2) th/mm3 WBC Differential Differential Comment PT (9.8-11.6) sec INR Ratio APTT (23.4-31.7) sec Sodium (136-145) meq/L Potassium (3.5-5.1) meq/L Chloride (98-107) meq/L Carbon Dioxide (21.0-32.0) meq/L Anion Gap (5-15) meq/L BUN (7-18) mg/dL Creatinine (0.50-1.00) mg/dL Estimated GFR (>89) mL/min POC Glucose 137 H 179 H 133 H (68-110) mg/dl Random Glucose (74-106) mg/dL Hemoglobin A1c (4.3-6.0) % Calcium (8.5-10.1) mg/dL Phosphorus (2.5-4.9) mg/dL Magnesium (1.5-2.5) mg/dL Total Bilirubin (0.2-1.0) mg/dL AST (15-37) U/L ALT (10-53) U/L Alkaline Phosphatase (45-117) U/L Total Creatine Kinase (26-192) U/L Troponin I (0.02-0.05) ng/mL B-Natriuretic Peptide (0-100) pg/mL Total Protein (6.4-8.2) g/dL Albumin (3.4-5.0) g/dL Urine Color (Yellw/Straw) Urine Clarity (Clear) Urine pH (5.0-8.5) Ur Specific [place] (1.002-1.035) Urine Protein (Neg-Trace) mg/dL Urine Glucose (UA) (Negative) mg/dL Urine Ketones (Negative) mg/dL Urine Occult Blood (Negative) Urine Nitrate (Negative) Urine Bilirubin (Negative) Urine Urobilinogen (Less than 2) mg/dL Ur Leukocyte Esterase (Negative) Urine RBC (0-3) /hpf Urine WBC (0-5) /hpf Urine WBC Clumps (None) Ur Squamous Epith Cells (0-5) /hpf Ur Transition Epith Cell (None) /hpf Ur Renal Epithelial Cell (None) /hpf Urine Mucus (Occasional) /lpf Micro UA Comment Ur Microscopic Review Urine Culture Comments Ur Random Creatinine (27-300) mg/dL U Random Total Protein (0-11.8) mg/dL Protein/Creatinin Ratio (0.00-0.14) IgG (650-1610) mg/dL IgA (85-468) mg/dL IgM (45-276) mg/dL [place]/Lambda Ratio (1.57-3.93) ALETHEA Interpretation MOIRA Screen (Neg) MOIRA Titer (Neg) MOIRA Pattern (None) MOIRA Interpretation Anti-Proteinase 3 (<1.0) AI Anti-Myeloperoxidase (<1.0) AI Complement C3 (90-180) mg/dL Complement C4 (10-40) mg/dL [place] Light Chain Anal (170-370) mg/dL Lambda Light Chain Anal (90-210) mg/dL 01/27/18 Range/Units 12:22 WBC (4.0-11.0) th/mm3 RBC (4.00-5.30) mil/mm3 Hgb (11.6-15.3) gm/dL Hct (35.0-46.0) % MCV (80.0-100.0) fL MCH (27.0-34.0) pg MCHC (32.0-36.0) % RDW (11.6-17.2) % Plt Count (150-450) th/mm3 MPV (7.0-11.0) fL Neut % (Auto) (16.0-70.0) % Lymph % (Auto) (9.0-44.0) % [place] % (Auto) (0.0-8.0) % Eos % (Auto) (0.0-4.0) % Baso % (Auto) (0.0-2.0) % Neut # (Auto) (1.8-7.7) th/mm3 Lymph # (Auto) (1.0-4.8) th/mm3 [place] # (Auto) (0.0-0.9) th/mm3 Eos # (Auto) (0.0-0.4) th/mm3 Baso # (Auto) (0.0-0.2) th/mm3 WBC Differential Differential Comment PT (9.8-11.6) sec INR Ratio APTT (23.4-31.7) sec Sodium (136-145) meq/L Potassium (3.5-5.1) meq/L Chloride (98-107) meq/L Carbon Dioxide (21.0-32.0) meq/L Anion Gap (5-15) meq/L BUN (7-18) mg/dL Creatinine (0.50-1.00) mg/dL Estimated GFR (>89) mL/min POC Glucose 172 H (68-110) mg/dl Random Glucose (74-106) mg/dL Hemoglobin A1c (4.3-6.0) % Calcium (8.5-10.1) mg/dL Phosphorus (2.5-4.9) mg/dL Magnesium (1.5-2.5) mg/dL Total Bilirubin (0.2-1.0) mg/dL AST (15-37) U/L ALT (10-53) U/L Alkaline Phosphatase (45-117) U/L Total Creatine Kinase (26-192) U/L Troponin I (0.02-0.05) ng/mL B-Natriuretic Peptide (0-100) pg/mL Total Protein (6.4-8.2) g/dL Albumin (3.4-5.0) g/dL Urine Color (Yellw/Straw) Urine Clarity (Clear) Urine pH (5.0-8.5) Ur Specific [place] (1.002-1.035) Urine Protein (Neg-Trace) mg/dL Urine Glucose (UA) (Negative) mg/dL Urine Ketones (Negative) mg/dL Urine Occult Blood (Negative) Urine Nitrate (Negative) Urine Bilirubin (Negative) Urine Urobilinogen (Less than 2) mg/dL Ur Leukocyte Esterase (Negative) Urine RBC (0-3) /hpf Urine WBC (0-5) /hpf Urine WBC Clumps (None) Ur Squamous Epith Cells (0-5) /hpf Ur Transition Epith Cell (None) /hpf Ur Renal Epithelial Cell (None) /hpf Urine Mucus (Occasional) /lpf Micro UA Comment Ur Microscopic Review Urine Culture Comments Ur Random Creatinine (27-300) mg/dL U Random Total Protein (0-11.8) mg/dL Protein/Creatinin Ratio (0.00-0.14) IgG (650-1610) mg/dL IgA (85-468) mg/dL IgM (45-276) mg/dL [place]/Lambda Ratio (1.57-3.93) ALETHEA Interpretation MOIRA Screen (Neg) MOIRA Titer (Neg) MOIRA Pattern (None) MOIRA Interpretation Anti-Proteinase 3 (<1.0) AI Anti-Myeloperoxidase (<1.0) AI Complement C3 (90-180) mg/dL Complement C4 (10-40) mg/dL [place] Light Chain Anal (170-370) mg/dL Lambda Light Chain Anal (90-210) mg/dL Imaging Data Radiologist's impression: Abdomen/Pelvis CT 01/22/18 12:35 CONCLUSION: 1. Multiple left renal calculi with several stones identified in the renal pelvis. There is no significant hydronephrosis. 2. Healed granulomatous disease. 3. Nodular lobulated mass is again evident in the right breast. 4. Small fat-containing umbilical hernia. 5. Status post hysterectomy. Chest X-Ray 01/22/18 12:35 CONCLUSION: Stable chest demonstrating cardiomegaly but no evidence of acute airspace disease or significant congestion. Abdomen/Bladder Ultrasound 01/23/18 00:00 CONCLUSION: 1. Echogenic kidneys consistent with medical renal disease. 2. Patient's known left-sided renal stones are not well demonstrated on ultrasound and may be obscured by technique required for body habitus. 3. No sonographic evidence for obstructive uropathy. Discharge Plan Discharge Disposition Patient Disposition: 30 Still Patient Discharge Condition Condition: Good Discharge Order Discharge Orders: Discharge Order (Routine); Ordered 01/27/18 Ordered By: Jose Daniel Higgins Discharge Details Diagnosis: Acute hyperkalemia, ANURADHA (acute kidney injury) Physicians Team ED Provider: Eriberto Reed ED Midlevel Provider: Latosha Hines Primary Care Provider: Jose Daniel Higgins Attending Provider: Jose Daniel Higgins Other Providers: Andrea Mendoza Status ED Status: Left Department Discharge Information Discharge Date/Time: 01/22/18 18:37
[2018-01-22 13:05] LABS: Baso # (Auto) 0.1 th/mm3 (0.0-0.2); Baso % (Auto) 0.8 % (0.0-2.0); Eos # (Auto) 0.3 th/mm3 (0.0-0.4); Eos % (Auto) 4.3 % (0.0-4.0); Hematocrit 31.3 % (35.0-46.0); Hemoglobin 10.1 gm/dL (11.6-15.3); Lymph # (Auto) 0.9 th/mm3 (1.0-4.8); Lymph % (Auto) 12.5 % (9.0-44.0); Mean Corpuscular HGB Conc 32.3 % (32.0-36.0); Mean Corpuscular Hemoglobin 28.3 pg (27.0-34.0); Mean Corpuscular Volume 87.7 fL (80.0-100.0); Mean Platelet Volume 8.9 fL (7.0-11.0); Mono # (Auto) 0.4 th/mm3 (0.0-0.9); Mono % (Auto) 5.2 % (0.0-8.0); Neut # (Auto) 5.5 th/mm3 (1.8-7.7); Neut % (Auto) 77.2 % (16.0-70.0); Platelet Count 233 th/mm3 (150-450); Red Blood Count 3.57 mil/mm3 (4.00-5.30); Red Cell Distribution Width 18.1 % (11.6-17.2); White Blood Count 7.1 th/mm3 (4.0-11.0)
[2018-01-22 13:14] LABS: Prothrombin Time 10.2 sec (9.8-11.6)
--- NOTE | 2018-01-22 13:15 | XR ---
EXAM DATE: 01/22/2018 1:09 PM EST AGE/SEX: 62 years / Female INDICATIONS: Short of breath. CLINICAL DATA: This is the patient's initial encounter. Patient reports that signs and symptoms have been present for 1 month and indicates a pain score of 0/10. MEDICAL/SURGICAL HISTORY: . Renal calculi. Uterine cancer Hysterectomy. . COMPARISON: [facility] [place], CHEST 1V SINGLE AP, 09/27/2017. . FINDINGS: Heart is moderately enlarged. Lungs remain free of acute airspace disease or congestion. Osseous structures are intact. CONCLUSION: Stable chest demonstrating cardiomegaly but no evidence of acute airspace disease or significant sachi estion. Electronically signed by: Wiliam Smith MD 01/22/2018 1:14 PM EST
[2018-01-22 13:33] LABS: Alanine Aminotransferase 29 U/L (10-53); Albumin 2.6 g/dL (3.4-5.0); Alkaline Phosphatase 97 U/L (45-117); Anion Gap 5 meq/L (5-15); Aspartate Aminotransferase 16 U/L (15-37); Blood Urea Nitrogen 79 mg/dL (7-18); Carbon Dioxide 15.9 meq/L (21.0-32.0); Chloride 120 meq/L (98-107); Glomerular Filtration Rate 18 mL/min (>89); Glucose,Random 127 mg/dL (74-106); Magnesium 2.2 mg/dL (1.5-2.5); Sodium 141 meq/L (136-145)
[2018-01-22 13:35] LABS: Creatine Kinase 80 U/L (26-192)
[2018-01-22 13:39] LABS: Potassium 6.7 meq/L (3.5-5.1)
[2018-01-22] MEDS ORDERED: Sodium Polystyrene Sulfonate/Sorbitol Liq 15 GM/60 ML UDC PO ONE (13:41)
[2018-01-22] MEDS ORDERED: Dextrose 50% in Water 50 ML Vial IV.PUSH ONE (13:41)
[2018-01-22] MEDS ORDERED: Sod Chloride 0.9% Inj 1,000 ML IV.SIG ONE (13:43)
[2018-01-22] MEDS ORDERED: RESP: Albuterol Concentrated 2.5 MG/0.5 ML Neb NEB ONE (13:44)
[2018-01-22 14:37] LABS: Bilirubin,Urine Negative (Negative); Clarity,Urine Turbid (Clear); Color,Urine Red (Yellw/Straw); Glucose,Urine (UA) Negative (Negative); Leukocyte Esterase,Urine Large (Negative); Mucus,Urine Few /lpf (Occasional); Nitrite,Urine Negative (Negative); Renal Epithelial Cells,Urine 1 /hpf; Specific Gravity,Urine 1.014 (1.002-1.035); Squamous Epithelial Cell,Urine 22 /hpf (0-5); Transitional Epi Cells,Urine 3 /hpf
--- NOTE | 2018-01-22 15:38 | CT ---
EXAM DATE: 01/22/2018 2:44 PM EST AGE/SEX: 62 years / Female INDICATIONS: Hematuria yesterday CLINICAL DATA: This is the patient's initial encounter. Patient reports that signs and symptoms have been present for 1 day and indicates a pain score of 4/10. MEDICAL/SURGICAL HISTORY: Diabetes. None. RADIATION DOSE: 33.80 CTDI (mGy) ; Patient body habitus COMPARISON: [facility] [place], CT ABDOMEN & PELVIS W CONTRAST, 09/27/2017. . TECHNIQUE: Multiple contiguous axial images were obtained through the abdomen. Images were obtained using multiple row detector helical technique. Using automated exposure control and adjustment of the mA and/or kV according to patient size, radiation dose was kept as low as reasonably achievable to o btain optimal diagnostic quality images. DICOM format image data is available electronically for rev iew and comparison. FINDINGS: Lower Lungs: The visualized lower lungs are clear. Calcified lymph node is identified in the right hi lum. A nodular lobulated soft tissue mass is again identified in the right breast measuring 2.3 x 3.8 cm i n size. There is deformity of the nipple and skin retraction. Liver: The liver has a homogeneous density without space-occupying lesion. There is no dilation of th e biliary tree. Spleen: Homogeneous density without enlargement. Numerous calcified granulomas are seen throughout t he spleen. Pancreas: Unremarkable without mass or calcification. Kidneys: Multiple calculi are identified in the left renal collecting system. Largest stones are paz ntified within the left renal pelvis measuring up to 11 mm in diameter. 10-11 stones are seen in the calyceal system which range in size up to 7 mm. There are no stones identified within the left ureter . The right kidney and collecting system are unremarkable. Adrenal Glands: Unremarkable. Aorta: The aorta and proximal iliac vessels are grossly unremarkable without aneurysmal dilation. Bowel/Mesentery: The bowel loops are grossly unremarkable. The cecum and sigmoid colon have a normal configuration. Abdominal Wall: Small fat-containing umbilical hernia is identified. Retroperitoneum: No evidence of adenopathy in the retrocrural, para-aortic, or deep pelvic regions. Bladder: Contours are smooth. Reproductive Organs: Uterus has been removed. No abnormal masses or calcifications seen. Inguinal: The inguinal region is unremarkable without evidence of adenopathy. Bony Structures: Unremarkable. CONCLUSION: 1. Multiple left renal calculi with several stones identified in the renal pelvis. There is no signi ficant hydronephrosis. 2. Healed granulomatous disease. 3. Nodular lobulated mass is again evident in the right breast. 4. Small fat-containing umbilical hernia. 5. Status post hysterectomy. Electronically signed by: Wiliam Smith MD 01/22/2018 3:36 PM EST
[2018-01-22] MEDS ORDERED: Sod Chloride 0.9% Inj 1,000 ML IV.CONT SCH (18:00)
--- NOTE | 2018-01-22 18:38 | P.HP ---
History of Present Illness Service: [facility] hospitalist service Primary Care Physician: Jose Daniel Higgins MD Chief Complaint: Generalized weakness tingling History of Present Illness: Patient is 62-year-old female with known history of diabetes type 2 on oral hypoglycemic, history of hypertension, history of cervical/endometrial ancer status post robotic laparoscopic surgery sometime in 2016, history of nephrolithiasis status post lithotripsy in the past patient states at one point had 23 stones, who presented to the ER complaining of generalized weakness all over. Patient also complains of some feeling of numbness of both lower extent extremities. Patient states she is voiding denies any burning or dysuria no fever. Patient states spontaneously passed out stones repeatedly in the past the last time was in September. Also noted yesterday having gross hematuria. Called her PCP who instructed her to come here for evaluation. At the ER patient was noted to have elevated potassium and elevated BUN/ creatinine. At the ER patient promptly received Kayexalate IV insulin and IV bicarb. Repeat potassium is down to 5.5. Twelve-lead EKG shows no acute hyperkalemic changes. Sinus rhythm. As outpatient patient is on furosemide 40 mg daily, hydrochlorothiazide 25 mg daily For her diabetes patient takes Januvia 50 mg daily. Checks her blood sugars on a regular basis and has been good. However patient states poor hypoglycemic sensation. She is unable to tolerate metformin and glipizide with GI adverse reaction. Patient also positive allergies to sulfa S. On review of old labs from September 2017 her BUN was 31 creatinine of 1.4. Inpatient Certification: I certify that the inpatient services were ordered in accordance with Medicare regulations governing the order. This includes certification that hospital inpatient services are reasonable and necessary and in the case of services not specified as inpatient-only under 42 CFR 419.22(n), that they are appropriately provided as inpatient services in accordance to with the 2-midnight benchmark under 43 CFR 412.3(e) Estimated Total Length of Stay (Days): 2 Plans for Post Hospital Care: Not yet determined Review of Systems Patient denies any fever chills Is ambulatory with no assistive device. Denies any melena or hematochezia. Frequency positive and as stated passout stone spontaneously periodically. Denies any leg swelling Denies any melena or hematochezia Poor hypoglycemic awareness. Denies any leg swelling. PMFSH - History History Provided By: Patient - Medical History Medical History: Medical History (Last Reviewed 01/23/18 @ 14:06 by Andrea Mendoza MD) Diabetes Urinary tract infection - Surgical History Surgical History: Surgical History (Last Updated 01/23/18 @ 14:07 by Andrea Mendoza MD) History of hysterectomy for cancer - Family History Family History: Family History (Last Updated 01/23/18 @ 14:07 by Andrea Mendoza MD) Other Family history non-contributory - Tobacco History Second Hand Smoke Exposure: No Smoking Status: Former smoker - Alcohol History How Often Do You Have a Drink Containing Alcohol: Never - Substance Use History Substance History: No History of Abuse - Travel History Recent Travel in the [place] Within the Last 8 Weeks: No Recent Travel Out of the Country Within the Last 8 Weeks: No - Immunization History Tetanus Immunization: Never Vaccinated Medications and Allergies Active Medications: Active Medications Amlodipine Besylate (Norvasc) 5 mg PO DAILY [facility] Sodium Bicarbonate 50 meq/ (Sodium Chloride) 1,000 mls @ 100 mls/hr IV.CONT .Q10H [facility] Ceftriaxone Sodium 1,000 mg/ (Sodium Chloride) 100 mls @ 200 mls/hr IV.SIG Q24H [facility] Nystatin (Mycostatin Cream) 1 applicatio TOPICAL BID ISMAEL Sodium Bicarbonate (Sodium Bicarbonate) 650 mg PO BID ISMAEL Sodium Polystyrene Sulfonate (Kayexalate Liq) 30 gm PO ONCE ONE Stop: 01/22/18 20:01 Allergies Allergy/AdvReac Type Severity Reaction Status Date / Time Opioids - Morphine Analogues Allergy Severe Difficulty Verified 01/22/18 12:35 Breathing Opioids-Meperidine and Allergy Severe Difficulty Verified 01/22/18 12:35 Related Breathing Opioids-Methadone and Related Allergy Severe Difficulty Verified 01/22/18 12:35 Breathing codeine AdvReac Severe UNABLE TO Verified 01/22/18 12:35 SLEEP FOR DAYS meperidine AdvReac Severe UNABLE TO Verified 01/22/18 12:35 SLEEP diphenhydramine AdvReac Unknown UNABLE TO Verified 01/22/18 12:35 SLEEP Home Medications Medication Instructions Recorded Confirmed Type folic acid 1 mg PO DAILY 01/22/18 01/22/18 History furosemide 40 mg PO DAILY 01/22/18 01/22/18 History hydrochlorothiazide 25 mg PO DAILY 01/22/18 01/22/18 History sitagliptin [Januvia] 50 mg PO DAILY 01/22/18 01/22/18 History Exam Vital signs: Vital Signs 01/22/18 12:11 01/22/18 12:34 01/22/18 12:40 Temperature 97.4 F L Pulse Rate 62 57 L 54 L Respiratory Rate 26 H 20 Blood Pressure 131/89 193/83 H Pulse Oximetry 98 100 100 01/22/18 12:41 01/22/18 15:38 01/22/18 15:39 Temperature Pulse Rate 64 52 L Respiratory Rate 18 22 Blood Pressure 170/72 H Pulse Oximetry 100 100 01/22/18 16:41 Temperature Pulse Rate 82 Respiratory Rate 16 Blood Pressure 197/74 H Pulse Oximetry 100 Intake & Output 01/21/18 01/22/18 01/22/18 19:59 06:59 18:59 Intake Total 1000 / 1000 Balance 1000 / 1000 Weight 123.831 kg Intake: IV 1000 / 1000 NS Inj 1,000 ML @ Wide Open IV. 1000 / 1000 SIG BOLUS ONE Rx#:[id number] Other: # Voids 2 Narrative: Elevated blood pressure Heart rate 68 regular neck temperature afebrile Anicteric sclerae pink palpebral conjunctivae dry oral mucosa Neck supple no rigidity Chest lungs decreased breath sounds no rales no wheezes Regular rhythm Abdomen is flabby soft no guarding or rigidity right inguinal area with very extensive area of erythema with some scaling Extremities trace pretibial pitting edema Neurologic exam awake alert oriented x3 clear speech Cranial nerves intact Motor moves all extremities equally however with generalized weakness Grossly no sensory deficits next Results - Labs CBC & Chem 7: 01/26/18 13:02 01/26/18 13:02 Labs: Laboratory Results - last 24 hr 01/22/18 01/22/18 01/22/18 12:10 12:10 12:10 WBC 7.1 RBC 3.57 L Hgb 10.1 L Hct 31.3 L MCV 87.7 MCH 28.3 MCHC 32.3 RDW 18.1 H Plt Count 233 MPV 8.9 Neut % (Auto) 77.2 H Lymph % (Auto) 12.5 [place] % (Auto) 5.2 Eos % (Auto) 4.3 H Baso % (Auto) 0.8 Neut # (Auto) 5.5 Lymph # (Auto) 0.9 L [place] # (Auto) 0.4 Eos # (Auto) 0.3 Baso # (Auto) 0.1 WBC Differential . Differential Comment Auto diff final PT 10.2 INR 1.0 APTT 26.0 Sodium 141 Potassium 6.7 H* Chloride 120 H Carbon Dioxide 15.9 L Anion Gap 5 BUN 79 H Creatinine 2.69 H Estimated GFR 18 L Random Glucose 127 H Calcium 8.0 L Magnesium 2.2 Total Bilirubin 0.2 AST 16 ALT 29 Alkaline Phosphatase 97 Total Creatine Kinase 80 Troponin I Less than 0.02 L B-Natriuretic Peptide Total Protein 8.0 Albumin 2.6 L Urine Color Urine Clarity Urine pH Ur Specific [place] Urine Protein Urine Glucose (UA) Urine Ketones Urine Occult Blood Urine Nitrate Urine Bilirubin Urine Urobilinogen Ur Leukocyte Esterase Urine RBC Urine WBC Urine WBC Clumps Ur Squamous Epith Cells Ur Transition Epith Cell Ur Renal Epithelial Cell Urine Mucus Micro UA Comment Ur Microscopic Review Urine Culture Comments 01/22/18 01/22/18 01/22/18 12:10 14:00 16:35 WBC RBC Hgb Hct MCV MCH MCHC RDW Plt Count MPV Neut % (Auto) Lymph % (Auto) [place] % (Auto) Eos % (Auto) Baso % (Auto) Neut # (Auto) Lymph # (Auto) [place] # (Auto) Eos # (Auto) Baso # (Auto) WBC Differential Differential Comment PT INR APTT Sodium Potassium 5.5 H D Chloride Carbon Dioxide Anion Gap BUN Creatinine Estimated GFR Random Glucose Calcium Magnesium Total Bilirubin AST ALT Alkaline Phosphatase Total Creatine Kinase Troponin I B-Natriuretic Peptide 133 H Total Protein Albumin Urine Color Red Urine Clarity Turbid H Urine pH 7.0 Ur Specific [place] 1.014 Urine Protein 500 or greater Urine Glucose (UA) Negative Urine Ketones Negative Urine Occult Blood Large H Urine Nitrate Negative Urine Bilirubin Negative Urine Urobilinogen Less than 2 Ur Leukocyte Esterase Large H Urine RBC Urine WBC Urine WBC Clumps Many H Ur Squamous Epith Cells 22 Ur Transition Epith Cell 3 Ur Renal Epithelial Cell 1 Urine Mucus Few H Micro UA Comment Culture indicated Ur Microscopic Review Not Reportable Urine Culture Comments Culture indicated - Imaging Impressions Abdomen/Pelvis CT 01/22/18 12:35 CONCLUSION: 1. Multiple left renal calculi with several stones identified in the renal pelvis. There is no significant hydronephrosis. 2. Healed granulomatous disease. 3. Nodular lobulated mass is again evident in the right breast. 4. Small fat-containing umbilical hernia. 5. Status post hysterectomy. Chest X-Ray 01/22/18 12:35 CONCLUSION: Stable chest demonstrating cardiomegaly but no evidence of acute airspace disease or significant congestion. Caprini VTE Risk Assessment Caprini VTE Risk Assessment: Moderate/High Risk (score >= 2) Caprini Risk Assessment Model: Point Value = 1 Point Value = 2 Point Value = 3 Point Value = 5 Age 41-60 Minor surgery BMI > 25 kg/m2 Swollen legs Varicose veins or History of unexplained or recurrent spontaneous Oral contraceptives or hormone replacement Sepsis (< 1 month) Serious lung disease, including pneumonia (< 1 month) Abnormal pulmonary function Acute myocardial infarction Congestive heart failure (< 1 month) History of inflammatory bowel disease Medical patient at bed rest Age 61-74 Arthroscopic surgery Major open surgery (> 45 min) Laparoscopic surgery (> 45 min) Malignancy Confined to bed (> 72 hours) Immobilizing plaster cast Central venous access Age >= 75 History of VTE Family history of VTE Factor V Leiden Prothrombin [id number] Lupus anticoagulant Anticardiolipin antibodies Elevated serum homocysteine Heparin-induced thrombocytopenia Other congenital or acquired thrombophilia Stroke (< 1 month) Elective arthroplasty Hip, pelvis, or leg fracture Acute spinal cord injury (< 1 month) Prophylaxis Regimen: Total Risk Factor Score Risk Level Prophylaxis Regimen 0-1 Low Early ambulation 2 Moderate Order ONE of the following: *Sequential Compression Device (SCD) *Heparin 5000 units SQ BID 3-4 Higher Order ONE of the following medications: *Heparin 5000 units SQ TID *Enoxaparin/Lovenox 40 mg SQ daily (WT < 150 kg, CrCl > 30 mL/min) *Enoxaparin/Lovenox 30 mg SQ daily (WT < 150 kg, CrCl > 10-29 mL/min) *Enoxaparin/Lovenox 30 mg SQ BID (WT < 150 kg, CrCl > 30 mL/min) AND/OR *Sequential Compression Device (SCD) 5 or more Highest Order ONE of the following medications: *Heparin 5000 units SQ TID (Preferred with Epidurals) *Enoxaparin/Lovenox 40 mg SQ daily (WT < 150 kg, CrCl > 30 mL/min) *Enoxaparin/Lovenox 30 mg SQ daily (WT < 150 kg, CrCl > 10-29 mL/min) *Enoxaparin/Lovenox 30 mg SQ BID (WT < 150 kg, CrCl > 30 mL/min) AND *Sequential Compression Device (SCD) Assessment and Plan - Plan 62-year-old female morbidly obese admitted for Generalized weakness multifactorial Acute kidney injury Hyperkalemia-6.7 Metabolic acidosis Underlying history of obstructive uropathy with nephrolithiasis however CT shows no obstruction -IV fluid. -Discontinue continue her p.o. diuretics of furosemide and hydrochlorothiazide -Patient received IV insulin, IV bicarb, and Kayexalate potassium dropped down to 5.5 -Patient received 1 L bolus. Will start patient on IV fluid half normal saline with 1 amp of bicarbonate 100 cc/h. -BMP in a.m. -CT of abdomen reviewed shows no hydronephrosis - We will insert a Peña catheter to monitor urine output for the next 24 hours. - Nephrology consult Gross hematuria. Nephrolithiasis on CT left renal pelvis History of lithotripsies in the past Urinary tract infection -Follow urine [facility] - Start patient on ceftriaxone 1 g every 24 hours - If no improvement in renal functions and gross hematuria persist- consult her urologist Dr. Rosenbaum Hypertension uncontrolled -We will start patient on amlodipine 5 mg daily. -As needed clonidine with parameters Diabetes type 2 -We will check hemoglobin A1c -Check FSand monitor = Discontinue Januvia Tinea cruris right inguinal area - Start on nystatin cream twice a day - monitor History of endometrial cancer - outpatient follow-up with [facility] oncology Dr. Lakhani. right breast Mass seen on CT - OP US of the breast Hold off on chemical chemical prophylaxis for now with gross hematuria. PT eval and treat in a.m.
[2018-01-22] MEDS: Sodium Bicarbonate 650 MG Tablet PO SCH ×2 (19:41→21:31)
[2018-01-22] MEDS: Sodium Polystyrene Sulfonate/Sorbitol Liq 15 GM/60 ML UDC PO ONE ×2 (19:54→23:31)
[2018-01-22] MEDS: amLODIPine 5 MG Tablet PO SCH (19:54)
[2018-01-22] MEDS: Sodium Bicarbonate 8.4% Inj 50 MEQ in Sodium Chloride 0.45 % Inj 950 ML IV.CONT SCH (20:01)
[2018-01-23 06:20] LABS: Calcium 7.7 mg/dL (8.5-10.1); Carbon Dioxide 16.6 meq/L (21.0-32.0); Potassium 5.5 meq/L (3.5-5.1)
[2018-01-23] MEDS: Sodium Bicarbonate 8.4% Inj 50 MEQ in Sodium Chloride 0.45 % Inj 950 ML IV.CONT SCH (06:49)
[2018-01-23] MEDS ORDERED: Sodium Bicarbonate 8.4% Inj 50 MEQ/50 ML Syringe IV.PUSH ONE (07:30)
[2018-01-23] MEDS: Sodium Bicarbonate 650 MG Tablet PO SCH ×2 (08:19→21:03)
[2018-01-23] MEDS: amLODIPine 5 MG Tablet PO SCH (08:19)
--- NOTE | 2018-01-23 10:01 | P.PN ---
Subjective Interval history: Patient feel better renal function better Potassium 5.1 today, consult nephrology d/w RN at bed side Physical Exam Vital signs: Vital Signs 01/22/18 12:11 01/22/18 12:34 01/22/18 12:40 Temperature 97.4 F L Pulse Rate 62 57 L 54 L Respiratory Rate 26 H 20 Blood Pressure 131/89 193/83 H Pulse Oximetry 98 100 100 01/22/18 12:41 01/22/18 15:38 01/22/18 15:39 Temperature Pulse Rate 64 52 L Respiratory Rate 18 22 Blood Pressure 170/72 H Pulse Oximetry 100 100 01/22/18 16:41 01/22/18 20:00 01/22/18 22:00 Temperature 97.9 F Pulse Rate 82 74 74 Respiratory Rate 16 19 Blood Pressure 197/74 H 191/78 H Pulse Oximetry 100 100 01/23/18 00:00 01/23/18 02:00 01/23/18 04:00 Temperature 98.1 F 98.1 F Pulse Rate 81 76 68 Respiratory Rate 20 19 Blood Pressure 163/67 H 161/67 H Pulse Oximetry 98 95 01/23/18 06:00 Temperature Pulse Rate 68 Respiratory Rate Blood Pressure Pulse Oximetry Intake & Output 01/22/18 01/23/18 01/23/18 18:59 06:59 18:59 Intake Total 1000 / 1000 1100 / 1100 Output Total 750 / 750 Balance 1000 / 1000 350 / 350 Weight 123.831 kg 123.8 kg Intake: IV 1000 / 1000 1100 / 1100 Sodium Bicarbonate 8.4% Inj 50 1000 / 1000 MEQ In 1/2 Normal Saline Inj 950 ML @ 100 mls/hr IV.CONT . Q10H [facility] Rx#:[id number] NS Inj 1,000 ML @ Wide Open IV. 1000 / 1000 SIG BOLUS ONE Rx#:[id number] Rocephin Inj 1,000 MG In NS Inj 100 / 100 100 ML @ 200 mls/hr IV.SIG Q24H [facility] Rx#:[id number] Output: Urine Amount (Catheter) 750 / 750 Indwelling Urethral Catheter 750 / 750 Other: # Voids 2 2 Date of Last Bowel Movement 01/23/18 # Bowel Movements 3 - Constitutional no acute distress - Routine HEENT Exam Head: Present: normocephalic, atraumatic Eye: Present: EOMI, PERRL ENT: Present: mucous membranes moist - Routine Neck Exam Present: supple, full ROM - Routine Respiratory Exam Present: CTA bilaterally - Routine Cardiovascular Exam Present: RRR, S1, S2 - Routine Abdominal Exam Present: soft, normoactive bowel sounds, distended - Routine Extremities Exam Present: full ROM, pulses intact - Routine Skin Exam Present: intact, dry, warm - Routine Neurological Exam Present: alert, oriented X3, CN II-XII intact, vision grossly intact, hearing grossly intact, normal speech - Detailed Neurological Exam: Coma Scale Eye Opening: Spontaneous Verbal Response: Oriented Motor Response: Obey commands Jorge Coma Scale Total: 15 - Routine Psychiatric Exam Present: normal affect, normal thought process, good judgment - Urinary Catheter Management Indwelling Urethral Catheter Cath placed during this visit: no Results - Labs CBC & Chem 7: 01/23/18 11:26 01/23/18 11:26 Laboratory Results - last 24 hr 01/22/18 01/22/18 01/22/18 12:10 12:10 12:10 WBC 7.1 RBC 3.57 L Hgb 10.1 L Hct 31.3 L MCV 87.7 MCH 28.3 MCHC 32.3 RDW 18.1 H Plt Count 233 MPV 8.9 Neut % (Auto) 77.2 H Lymph % (Auto) 12.5 [place] % (Auto) 5.2 Eos % (Auto) 4.3 H Baso % (Auto) 0.8 Neut # (Auto) 5.5 Lymph # (Auto) 0.9 L [place] # (Auto) 0.4 Eos # (Auto) 0.3 Baso # (Auto) 0.1 WBC Differential . Differential Comment Auto diff final PT 10.2 INR 1.0 APTT 26.0 Sodium 141 Potassium 6.7 H* Chloride 120 H Carbon Dioxide 15.9 L Anion Gap 5 BUN 79 H Creatinine 2.69 H Estimated GFR 18 L POC Glucose Random Glucose 127 H Calcium 8.0 L Magnesium 2.2 Total Bilirubin 0.2 AST 16 ALT 29 Alkaline Phosphatase 97 Total Creatine Kinase 80 Troponin I Less than 0.02 L B-Natriuretic Peptide Total Protein 8.0 Albumin 2.6 L Urine Color Urine Clarity Urine pH Ur Specific [place] Urine Protein Urine Glucose (UA) Urine Ketones Urine Occult Blood Urine Nitrate Urine Bilirubin Urine Urobilinogen Ur Leukocyte Esterase Urine RBC Urine WBC Urine WBC Clumps Ur Squamous Epith Cells Ur Transition Epith Cell Ur Renal Epithelial Cell Urine Mucus Micro UA Comment Ur Microscopic Review Urine Culture Comments 01/22/18 01/22/18 01/22/18 12:10 14:00 16:35 WBC RBC Hgb Hct MCV MCH MCHC RDW Plt Count MPV Neut % (Auto) Lymph % (Auto) [place] % (Auto) Eos % (Auto) Baso % (Auto) Neut # (Auto) Lymph # (Auto) [place] # (Auto) Eos # (Auto) Baso # (Auto) WBC Differential Differential Comment PT INR APTT Sodium Potassium 5.5 H D Chloride Carbon Dioxide Anion Gap BUN Creatinine Estimated GFR POC Glucose Random Glucose Calcium Magnesium Total Bilirubin AST ALT Alkaline Phosphatase Total Creatine Kinase Troponin I B-Natriuretic Peptide 133 H Total Protein Albumin Urine Color Red Urine Clarity Turbid H Urine pH 7.0 Ur Specific [place] 1.014 Urine Protein 500 or greater Urine Glucose (UA) Negative Urine Ketones Negative Urine Occult Blood Large H Urine Nitrate Negative Urine Bilirubin Negative Urine Urobilinogen Less than 2 Ur Leukocyte Esterase Large H Urine RBC Urine WBC Urine WBC Clumps Many H Ur Squamous Epith Cells 22 Ur Transition Epith Cell 3 Ur Renal Epithelial Cell 1 Urine Mucus Few H Micro UA Comment Culture indicated Ur Microscopic Review Not Reportable Urine Culture Comments Culture indicated 01/22/18 01/23/18 21:04 05:25 WBC RBC Hgb Hct MCV MCH MCHC RDW Plt Count MPV Neut % (Auto) Lymph % (Auto) [place] % (Auto) Eos % (Auto) Baso % (Auto) Neut # (Auto) Lymph # (Auto) [place] # (Auto) Eos # (Auto) Baso # (Auto) WBC Differential Differential Comment PT INR APTT Sodium 143 Potassium 5.5 H Chloride 119 H Carbon Dioxide 16.6 L Anion Gap 7 BUN 69 H Creatinine 2.27 H Estimated GFR 22 L POC Glucose 113 H Random Glucose 114 H Calcium 7.7 L Magnesium Total Bilirubin AST ALT Alkaline Phosphatase Total Creatine Kinase Troponin I B-Natriuretic Peptide Total Protein Albumin Urine Color Urine Clarity Urine pH Ur Specific [place] Urine Protein Urine Glucose (UA) Urine Ketones Urine Occult Blood Urine Nitrate Urine Bilirubin Urine Urobilinogen Ur Leukocyte Esterase Urine RBC Urine WBC Urine WBC Clumps Ur Squamous Epith Cells Ur Transition Epith Cell Ur Renal Epithelial Cell Urine Mucus Micro UA Comment Ur Microscopic Review Urine Culture Comments - Imaging Impressions Abdomen/Pelvis CT 01/22/18 12:35 CONCLUSION: 1. Multiple left renal calculi with several stones identified in the renal pelvis. There is no significant hydronephrosis. 2. Healed granulomatous disease. 3. Nodular lobulated mass is again evident in the right breast. 4. Small fat-containing umbilical hernia. 5. Status post hysterectomy. Chest X-Ray 01/22/18 12:35 CONCLUSION: Stable chest demonstrating cardiomegaly but no evidence of acute airspace disease or significant congestion. Assessment and Plan - Plan Assessment and Plan 62-year-old female morbidly obese admitted for Generalized weakness multifactorial Acute kidney injury Hyperkalemia on admission -6.7 ....now 5.1 Metabolic acidosis... better history of obstructive uropathy with nephrolithiasis however CT shows no obstruction -IV fluid. -Discontinue her p.o. diuretics of furosemide and hydrochlorothiazide -Patient received IV insulin, IV bicarb, and Kayexalate potassium dropped down to 5.1 -Patient received 1 L bolus. patient on IV fluid half normal saline with 1 amp of bicarbonate 100 cc/h. -CMP in a.m. -CT of abdomen reviewed shows no hydronephrosis - We will insert a Peña catheter to monitor urine output for the next 24 hours. - nephrology consulted Gross hematuria. Nephrolithiasis on CT left renal pelvis History of lithotripsies in the past Urinary tract infection -Follow urine culture... negative so far - patient on ceftriaxone 1 g every 24 hours - If no improvement in renal functions and gross hematuria persist- will consult her urologist Dr. Rosenbaum in am Hypertension uncontrolled - patient on amlodipine 10 mg daily. -As needed clonidine with parameters Diabetes type 2 -We will check hemoglobin A1c -Check blood sugar monitor = Discontinue Januvia Tinea cruris right inguinal area - on nystatin cream twice a day - monitor History of endometrial cancer - outpatient follow-up with [facility] oncology Dr. Lakhani. right breast Mass seen on CT - OP US of the breast Hold off on chemical prophylaxis for now with gross hematuria. PT eval and treat
[2018-01-23] MEDS ORDERED: Dextrose 50% in Water 50 ML Vial IV.PUSH PRN (10:03)
[2018-01-23 11:56] LABS: Baso # (Auto) 0.1 th/mm3 (0.0-0.2); Baso % (Auto) 0.9 % (0.0-2.0); Eos # (Auto) 0.4 th/mm3 (0.0-0.4); Eos % (Auto) 5.2 % (0.0-4.0); Hematocrit 29.2 % (35.0-46.0); Hemoglobin 9.7 gm/dL (11.6-15.3); Lymph # (Auto) 0.8 th/mm3 (1.0-4.8); Lymph % (Auto) 10.8 % (9.0-44.0); Mean Corpuscular HGB Conc 33.3 % (32.0-36.0); Mean Corpuscular Hemoglobin 28.7 pg (27.0-34.0); Mean Corpuscular Volume 86.1 fL (80.0-100.0); Mean Platelet Volume 9.1 fL (7.0-11.0); Mono # (Auto) 0.4 th/mm3 (0.0-0.9); Mono % (Auto) 5.2 % (0.0-8.0); Neut # (Auto) 5.7 th/mm3 (1.8-7.7); Neut % (Auto) 77.9 % (16.0-70.0); Platelet Count 214 th/mm3 (150-450); Red Blood Count 3.39 mil/mm3 (4.00-5.30); Red Cell Distribution Width 18.3 % (11.6-17.2); White Blood Count 7.3 th/mm3 (4.0-11.0)
[2018-01-23] MEDS: Insulin NovoLOG Aspart Correctional Sugar Inj SQ SCH ×3 (12:04→21:07)
[2018-01-23 12:16] LABS: Albumin 2.4 g/dL (3.4-5.0); Anion Gap 5 meq/L (5-15); Aspartate Aminotransferase 18 U/L (15-37); Blood Urea Nitrogen 63 mg/dL (7-18); Carbon Dioxide 18.8 meq/L (21.0-32.0); Chloride 117 meq/L (98-107); Glomerular Filtration Rate 24 mL/min (>89); Glucose,Random 199 mg/dL (74-106); Potassium 5.1 meq/L (3.5-5.1); Sodium 141 meq/L (136-145)
[2018-01-23 12:19] LABS: Alanine Aminotransferase 27 U/L (10-53); Alkaline Phosphatase 100 U/L (45-117); Total Protein 7.7 g/dL (6.4-8.2)
--- NOTE | 2018-01-23 14:15 | P.CONNP ---
History of Present Illness Service: Nephrology Consult date: 01/23/18 Requesting Physician: Jose Daniel Higgins Reason for Consult: Acute on chronic kidney disease with hyperkalemia Primary Care Provider: Jose Daniel Higgins MD Chief Complaint: Generalized weakness tingling History of Present Illness: Patient is a 62-year-old white female with history of diabetes, obesity, cervical and uterine cancer status post surgical resection and radiation treatment who said in 2016 and she was sick and discovered to have 23 kidney stones on the left kidney she underwent lithotripsy has frequent pain and urinary tract infection prior to discovery of kidney stones and went to the emergency a lot, but since then she has been discovered to have diabetes and has tried metformin but could not tolerate and currently on Januvia, patient stated she was feeling fine until she was 59 years old and never had to take any medication, she suspect her diabetes may be older than when she was told, although she has never had symptoms. She was passing blood in the urine she has a Peña catheter there is a possibility of UTI and she is placed on ceftriaxone. She stated that she was not feeling well felt weak tired and head was foggy, came in with a potassium of 6.7, patient admitted to eating a lot of tomatoes, she said she is from [place] and she loves to eat tomatoes. Review of Systems Constitutional: Reports fatigue, Reports lack of energy Eyes: Reports other Ears, Nose, Mouth, and Throat: Reports other Cardiovascular: Reports leg swelling, Reports shortness of breath Respiratory: Reports shortness of breath Gastrointestinal: Reports abdominal pain Genitourinary: Reports blood in urine, Reports side pain Musculoskeletal: Reports back pain, Reports body aches Skin/Breast: Reports other Neurologic: Reports weakness Psychiatric: Reports other Endocrine: Denies cold intolerance, Denies excessive sweating, Denies flushing, Denies heat intolerance, Denies increased hunger, Denies increased thirst, Denies increased urination, Denies rapid, pounding, or irregular heartbeat, Denies other Hematologic/Lymphatic: Denies easy bleeding, Denies easy bruising, Denies enlarged lymph nodes, Denies other PMFSH - History History Provided By: Patient - Medical History Medical History: Medical History (Last Reviewed 01/23/18 @ 14:06 by Andrea Mendoza MD) Diabetes Urinary tract infection - Surgical History Surgical History: Surgical History (Last Updated 01/23/18 @ 14:07 by Andrea Mendoza MD) History of hysterectomy for cancer - Family History Family History: Family History (Last Updated 01/23/18 @ 14:07 by Andrea Mendoza MD) Other Family history non-contributory - Social History I have reviewed the patient's Social History: Yes - Tobacco History Second Hand Smoke Exposure: No Smoking Status: Former smoker - Alcohol History How Often Do You Have a Drink Containing Alcohol: Never - Substance Use History Substance History: No History of Abuse - Travel History Recent Travel in the [place] Within the Last 8 Weeks: No Recent Travel Out of the Country Within the Last 8 Weeks: No - Immunization History Tetanus Immunization: Never Vaccinated Medications and Allergies Active Medications: Active Medications Amlodipine Besylate (Norvasc) 5 mg PO DAILY [facility] Last Admin: 01/23/18 08:19 Dose: 5 mg Clonidine HCl (Catapres) 0.1 mg PO Q6H PRN PRN Reason: SBP>160, DBP>90 Last Admin: 01/23/18 12:03 Dose: 0.1 mg Dextrose (D50w Vial) 50 ml IV.PUSH UNSCH PRN PRN Reason: PER HYPOGLYCEMIA PROTOCOL Glucagon (Glucagon Inj) 1 mg OTHER PRN PRN PRN Reason: for Hypoglycemia Protocol Sodium Bicarbonate 50 meq/ (Sodium Chloride) 1,000 mls @ 100 mls/hr IV.CONT .Q10H [facility] Last Admin: 01/23/18 06:49 Dose: 100 mls/hr Ceftriaxone Sodium 1,000 mg/ (Sodium Chloride) 100 mls @ 200 mls/hr IV.SIG Q24H [facility] Last Infusion: 01/22/18 21:58 Dose: Infused Insulin Aspart (Novolog Insulin Correctional Sugar Inj) 0 unit SQ ACHS [facility]; Protocol Last Admin: 01/23/18 12:04 Dose: 2 unit Nystatin (Mycostatin Cream) 1 applicatio TOPICAL BID [facility] Last Admin: 01/23/18 12:03 Dose: 1 applicatio Sodium Bicarbonate (Sodium Bicarbonate) 650 mg PO BID [facility] Last Admin: 01/23/18 08:19 Dose: 650 mg Allergies Allergy/AdvReac Type Severity Reaction Status Date / Time Opioids - Morphine Analogues Allergy Severe Difficulty Verified 01/22/18 12:35 Breathing Opioids-Meperidine and Allergy Severe Difficulty Verified 01/22/18 12:35 Related Breathing Opioids-Methadone and Related Allergy Severe Difficulty Verified 01/22/18 12:35 Breathing codeine AdvReac Severe UNABLE TO Verified 01/22/18 12:35 SLEEP FOR DAYS meperidine AdvReac Severe UNABLE TO Verified 01/22/18 12:35 SLEEP diphenhydramine AdvReac Unknown UNABLE TO Verified 01/22/18 12:35 SLEEP Home Medications Medication Instructions Recorded Confirmed Type folic acid 1 mg PO DAILY 01/22/18 01/22/18 History furosemide 40 mg PO DAILY 01/22/18 01/22/18 History hydrochlorothiazide 25 mg PO DAILY 01/22/18 01/22/18 History sitagliptin [Januvia] 50 mg PO DAILY 01/22/18 01/22/18 History Exam Vital signs: Vital Signs 01/22/18 15:38 01/22/18 15:39 01/22/18 16:41 Temperature Pulse Rate 52 L 82 Respiratory Rate 22 16 Blood Pressure 197/74 H Pulse Oximetry 100 100 01/22/18 20:00 01/22/18 22:00 01/23/18 00:00 Temperature 97.9 F 98.1 F Pulse Rate 74 74 81 Respiratory Rate 19 20 Blood Pressure 191/78 H 163/67 H Pulse Oximetry 100 98 01/23/18 02:00 01/23/18 04:00 01/23/18 06:00 Temperature 98.1 F Pulse Rate 76 68 68 Respiratory Rate 19 Blood Pressure 161/67 H Pulse Oximetry 95 01/23/18 08:00 Temperature Pulse Rate 71 Respiratory Rate 19 Blood Pressure Pulse Oximetry Intake & Output 01/22/18 01/23/18 01/23/18 18:59 06:59 18:59 Intake Total 1000 / 1000 1100 / 1100 Output Total 750 / 750 Balance 1000 / 1000 350 / 350 Weight 123.831 kg 123.8 kg Intake: IV 1000 / 1000 1100 / 1100 Sodium Bicarbonate 8.4% Inj 50 1000 / 1000 MEQ In 1/2 Normal Saline Inj 950 ML @ 100 mls/hr IV.CONT . Q10H [facility] Rx#:[id number] NS Inj 1,000 ML @ Wide Open IV. 1000 / 1000 SIG BOLUS ONE Rx#:[id number] Rocephin Inj 1,000 MG In NS Inj 100 / 100 100 ML @ 200 mls/hr IV.SIG Q24H [facility] Rx#:[id number] Output: Urine Amount (Catheter) 750 / 750 Indwelling Urethral Catheter 750 / 750 Other: # Voids 2 2 Date of Last Bowel Movement 01/23/18 01/23/18 # Bowel Movements 3 Narrative: GENERAL: Well-nourished, obese well-developed patient. SKIN: Warm and dry. HEAD: Normocephalic. EYES: No scleral icterus. No injection or drainage. NECK: Supple, trachea midline. No JVD or lymphadenopathy. CARDIOVASCULAR: Regular rate and rhythm without murmurs, gallops, or rubs. RESPIRATORY: Breath sounds equal bilaterally. No accessory muscle use. GASTROINTESTINAL: Abdomen soft, non-tender, nondistended. EXTREMITIES: 1+ edema NEUROLOGICAL: Awake, alert, and oriented x 3. Non-focal. Results - Lab Results 01/23/18 11:26 01/24/18 04:56 Most recent lab results Calcium 8.0 mg/dL (8.5-10.1) L 01/23/18 11:26 Magnesium 2.2 mg/dL (1.5-2.5) 01/22/18 12:10 Assessment and Plan - Assessment (1) Chronic kidney disease Code(s): N18.9 - Chronic kidney disease, unspecified Status: Acute (2) Diabetes Code(s): E11.9 - Type 2 diabetes mellitus without complications Status: Acute (3) Urinary tract infection Code(s): N39.0 - Urinary tract infection, site not specified Status: Acute (4) Hyperkalemia Code(s): E87.5 - Hyperkalemia Status: Acute (5) Acute hyperkalemia Code(s): E87.5 - Hyperkalemia Status: Acute (6) ANURADHA (acute kidney injury) Code(s): N17.9 - Acute kidney failure, unspecified Status: Acute - Plan Patient is seen in most likely acute renal failure and chronic kidney disease is associated with diabetic kidney disease and underlying kidney stone disease Patient has reduced GFR and she was on high potassium diet I explained to her that system got overwhelmed and the potassium load just build up caused her symptoms Patient was treated emergently in the emergency with D50, insulin and Kayexalate , sodium bicarbonate and potassium improved to 5.1 It is essential to limit the potassium in the diet along with salt Will do investigation for chronic kidney disease including ultrasound of the kidney, protein electrophoresis, MOIRA, serum complement Urine immunofixation Follow urine culture Follow BMP
[2018-01-23 16:23] LABS: Phosphorus 4.3 mg/dL (2.5-4.9)
[2018-01-23 16:36] LABS: Kappa Lambda Ratio 1.75 (1.57-3.93)
[2018-01-23 17:18] LABS: Hemoglobin A1c 8.2 % (4.3-6.0)
[2018-01-23 20:29] LABS: Protein/Creatinine Ratio,Urine 4.86 (0.00-0.14)
--- NOTE | 2018-01-23 20:34 | US ---
EXAM DATE: 01/23/2018 8:29 PM EST AGE/SEX: 62 years / Female INDICATIONS: Increase lab values. CLINICAL DATA: This is the patient's initial encounter. Patient reports that signs and symptoms have been present for 1 day and indicates a pain score of 0/10. MEDICAL/SURGICAL HISTORY: Diabetes. Urinary tract infection. Hysterectomy. [place] [facility] [place]AST, 01/22/2018. . MEASUREMENTS: Right Kidney:__15.5 x 6.8 x 6.0 cm Left Kidney:__11.3 x 6.3 x 5.8 cm FINDINGS: Right Kidney: Increased echotexture. No mass or hydronephrosis. Left Kidney: Increased echotexture. No mass or hydronephrosis. Bladder: Peña catheter is present. Bladder decompressed. Other: None. CONCLUSION: 1. Echogenic kidneys consistent with medical renal disease. 2. Patient's known left-sided renal stones are not well demonstrated on ultrasound and may be obscur ed by technique required for body habitus. 3. No sonographic evidence for obstructive uropathy. Electronically signed by: Brandon Alejandro MD 01/23/2018 8:33 PM EST
--- NOTE | 2018-01-23 21:41 | ECG ---
Date Performed: 01/22/2018 Time Performed: 12:45:07 PTAGE: 62 years EKG: SINUS BRADYCARDIA WITH SINUS ARRHYTHMIA WITH FIRST DEGREE AV BLOCK NONSPECIFIC T-WAVE ABNOR MALITY ABNORMAL ECG PREVIOUS TRACING : 09/27/2017 22.32 Since the previous tracing, no significant change noted DOCTOR: Ricky Delgado Interpretating Date/Time 01/23/2018 21:39:57
[2018-01-24 06:16] LABS: Calcium 8.1 mg/dL (8.5-10.1); Carbon Dioxide 19.9 meq/L (21.0-32.0)
--- NOTE | 2018-01-24 09:56 | P.PN ---
Subjective Interval history: Patient feeling same ok to transfer out of ICU Discussed with [employer]IVER Agata Chen foleys catheter. Check Labs in AM. Physical Exam Vital signs: Vital Signs 01/23/18 10:00 01/23/18 11:19 01/23/18 11:27 Temperature Pulse Rate 66 68 69 Respiratory Rate 26 H 39 H Blood Pressure 169/70 H Pulse Oximetry 98 98 01/23/18 12:00 01/23/18 13:00 01/23/18 14:00 Temperature 98 F Pulse Rate 68 60 60 Respiratory Rate 18 21 24 Blood Pressure 170/75 H 150/73 H 151/66 H Pulse Oximetry 97 98 99 01/23/18 15:00 01/23/18 16:00 01/23/18 16:54 Temperature 98 F Pulse Rate 61 60 Respiratory Rate 20 20 Blood Pressure 152/69 H 153/67 H Pulse Oximetry 98 98 97 01/23/18 17:00 01/23/18 18:00 01/23/18 19:00 Temperature Pulse Rate 59 L 62 66 Respiratory Rate 19 24 23 Blood Pressure 141/104 H 158/69 H 142/61 H Pulse Oximetry 97 98 97 01/23/18 20:00 01/23/18 20:33 01/23/18 20:34 Temperature 98 F Pulse Rate 71 72 66 Respiratory Rate 24 31 H 26 H Blood Pressure 154/66 H 176/76 H 183/72 H Pulse Oximetry 99 99 98 01/23/18 20:44 01/23/18 21:00 01/23/18 22:00 Temperature Pulse Rate 71 62 Respiratory Rate 24 21 Blood Pressure 183/75 H 179/78 H Pulse Oximetry 100 99 96 01/23/18 23:00 01/23/18 23:45 01/24/18 00:00 Temperature 98.1 F Pulse Rate 65 65 57 L Respiratory Rate 20 22 Blood Pressure 184/76 H 166/72 H Pulse Oximetry 97 01/24/18 01:00 01/24/18 01:01 01/24/18 02:00 Temperature Pulse Rate 77 66 58 L Respiratory Rate 29 H 25 H 19 Blood Pressure 206/81 H 186/77 H 193/79 H Pulse Oximetry 95 96 97 01/24/18 03:00 01/24/18 04:00 01/24/18 05:00 Temperature 98 F Pulse Rate 55 L 53 L 54 L Respiratory Rate 20 20 19 Blood Pressure 169/72 H 165/72 H 179/78 H Pulse Oximetry 94 L 01/24/18 06:00 01/24/18 08:34 Temperature Pulse Rate 54 L Respiratory Rate 17 Blood Pressure 196/95 H Pulse Oximetry 99 Intake & Output 01/23/18 01/24/18 01/24/18 18:59 06:59 18:59 Intake Total 880 / 880 1060 / 1060 Output Total 1300 / 1300 725 / 725 Balance -420 / -420 335 / 335 Intake: IV 100 / 100 Rocephin Inj 1,000 MG In NS Inj 100 / 100 100 ML @ 200 mls/hr IV.SIG Q24H [facility] Rx#:[id number] Oral 880 / 880 960 / 960 Output: Urine Amount (Catheter) 1300 / 1300 725 / 725 Indwelling Urethral Catheter 1300 / 1300 725 / 725 Other: Date of Last Bowel Movement 01/23/18 01/23/18 # Bowel Movements 2 1 - Constitutional no acute distress - Routine HEENT Exam Head: Present: normocephalic, atraumatic Eye: Present: EOMI, PERRL ENT: Present: mucous membranes moist - Routine Neck Exam Present: supple, full ROM - Routine Respiratory Exam Present: CTA bilaterally - Routine Cardiovascular Exam Present: RRR, S1, S2 - Routine Abdominal Exam Present: soft, normoactive bowel sounds - Routine Skin Exam Present: intact, dry, warm - Routine Neurological Exam Present: alert, oriented X3, CN II-XII intact - Detailed Neurological Exam: Coma Scale Eye Opening: Spontaneous Verbal Response: Oriented Motor Response: Obey commands Jorge Coma Scale Total: 15 - Routine Psychiatric Exam Present: normal affect, normal thought process, good judgment - Urinary Catheter Management Indwelling Urethral Catheter Cath placed during this visit: no Reason for continuing: Acute urinary retention Results - Labs CBC & Chem 7: 01/24/18 11:45 01/24/18 11:45 Laboratory Results - last 24 hr 01/23/18 01/23/18 01/23/18 05:25 11:26 11:26 WBC 7.3 RBC 3.39 L Hgb 9.7 L Hct 29.2 L MCV 86.1 MCH 28.7 MCHC 33.3 RDW 18.3 H Plt Count 214 MPV 9.1 Neut % (Auto) 77.9 H Lymph % (Auto) 10.8 [place] % (Auto) 5.2 Eos % (Auto) 5.2 H Baso % (Auto) 0.9 Neut # (Auto) 5.7 Lymph # (Auto) 0.8 L [place] # (Auto) 0.4 Eos # (Auto) 0.4 Baso # (Auto) 0.1 WBC Differential . Differential Comment Auto diff final Sodium 141 Potassium 5.1 Chloride 117 H Carbon Dioxide 18.8 L Anion Gap 5 BUN 63 H Creatinine 2.10 H Estimated GFR 24 L POC Glucose Random Glucose 199 H Hemoglobin A1c 8.2 H Calcium 8.0 L Phosphorus Total Bilirubin 0.3 AST 18 ALT 27 Alkaline Phosphatase 100 Total Protein 7.7 Albumin 2.4 L Ur Random Creatinine U Random Total Protein Protein/Creatinin Ratio IgG IgA IgM [place]/Lambda Ratio Complement C3 Complement C4 [place] Light Chain Anal Lambda Light Chain Anal 01/23/18 01/23/18 01/23/18 11:51 15:07 16:21 WBC RBC Hgb Hct MCV MCH MCHC RDW Plt Count MPV Neut % (Auto) Lymph % (Auto) [place] % (Auto) Eos % (Auto) Baso % (Auto) Neut # (Auto) Lymph # (Auto) [place] # (Auto) Eos # (Auto) Baso # (Auto) WBC Differential Differential Comment Sodium Potassium Chloride Carbon Dioxide Anion Gap BUN Creatinine Estimated GFR POC Glucose 199 H 135 H Random Glucose Hemoglobin A1c Calcium Phosphorus 4.3 Total Bilirubin AST ALT Alkaline Phosphatase Total Protein Albumin Ur Random Creatinine U Random Total Protein Protein/Creatinin Ratio IgG 2030 H IgA 426 IgM 63 [place]/Lambda Ratio 1.75 Complement C3 111 Complement C4 29 [place] Light Chain Anal 495 H Lambda Light Chain Anal 283 H 01/23/18 01/23/18 01/24/18 18:15 20:50 04:56 WBC RBC Hgb Hct MCV MCH MCHC RDW Plt Count MPV Neut % (Auto) Lymph % (Auto) [place] % (Auto) Eos % (Auto) Baso % (Auto) Neut # (Auto) Lymph # (Auto) [place] # (Auto) Eos # (Auto) Baso # (Auto) WBC Differential Differential Comment Sodium 143 Potassium 5.0 Chloride 116 H Carbon Dioxide 19.9 L Anion Gap 7 BUN 58 H Creatinine 2.04 H Estimated GFR 25 L POC Glucose 160 H Random Glucose 121 H Hemoglobin A1c Calcium 8.1 L Phosphorus Total Bilirubin AST ALT Alkaline Phosphatase Total Protein Albumin Ur Random Creatinine 64 U Random Total Protein 310.9 H Protein/Creatinin Ratio 4.86 H IgG IgA IgM [place]/Lambda Ratio Complement C3 Complement C4 [place] Light Chain Anal Lambda Light Chain Anal Microbiology 01/22/18 14:00 Clean Catch Urine Urine Culture - Final 50-100,000 cfu/mL mixed gram positive majo (probable contaminants) - Imaging Impressions Abdomen/Bladder Ultrasound 01/23/18 00:00 CONCLUSION: 1. Echogenic kidneys consistent with medical renal disease. 2. Patient's known left-sided renal stones are not well demonstrated on ultrasound and may be obscured by technique required for body habitus. 3. No sonographic evidence for obstructive uropathy. Assessment and Plan - Plan Assessment and Plan 62-year-old female morbidly obese admitted for Generalized weakness multifactorial Acute kidney injury Hyperkalemia on admission -6.7 ....now 5.0 Metabolic acidosis... resolved history of obstructive uropathy with nephrolithiasis however CT shows no obstruction -IV fluid. -Discontinue her p.o. diuretics of furosemide and hydrochlorothiazide -Patient received IV insulin, IV bicarb, and Kayexalate potassium dropped down to 5.0 -Patient received 1 L bolus. patient on IV fluid half normal saline with 1 amp of bicarbonate 100 cc/h. -CMP in a.m. -CT of abdomen reviewed shows no hydronephrosis .. nephrology input noted. Gross hematuria. ...Nephrolithiasis on CT left renal pelvis ...History of lithotripsies in the past Urinary tract infection -Follow urine culture... probable contamination. - patient on ceftriaxone 1 g every 24 hours - If no improvement in renal functions and gross hematuria persist- will consult her urologist Dr. Rosenbaum in am Hypertension uncontrolled - patient on amlodipine 10 mg daily. -As needed clonidine with parameters Diabetes type 2 - checked hemoglobin A1c...8.2... blood sugar monitoring ...Discontinue Januvia Tinea cruris right inguinal area - on nystatin cream twice a day History of endometrial cancer - outpatient follow-up with [facility] oncology Dr. Lakhani. Right breast Mass seen on CT... OP US of the breast Hold off on chemical prophylaxis for now with gross hematuria. PT eval and treat Transfer the patient out of ICU Remove foleys catheter Check CBC with diff CMP in AM.
[2018-01-24] MEDS: amLODIPine 5 MG Tablet PO SCH (10:11)
[2018-01-24] MEDS: Insulin NovoLOG Aspart Correctional Sugar Inj SQ SCH ×4 (10:20→20:19)
[2018-01-24] MEDS: Sodium Bicarbonate 650 MG Tablet PO SCH ×2 (10:53→20:23)
--- NOTE | 2018-01-24 10:57 | P.PNNP ---
Subjective Interval history: Patient is tired and weak, she cries easily states she is upset Physical Exam Vital signs: Vital Signs 01/23/18 11:19 01/23/18 11:27 01/23/18 12:00 Temperature 98 F Pulse Rate 68 69 68 Respiratory Rate 39 H 18 Blood Pressure 169/70 H 170/75 H Pulse Oximetry 98 97 01/23/18 13:00 01/23/18 14:00 01/23/18 15:00 Temperature Pulse Rate 60 60 61 Respiratory Rate 21 24 20 Blood Pressure 150/73 H 151/66 H 152/69 H Pulse Oximetry 98 99 98 01/23/18 16:00 01/23/18 16:54 01/23/18 17:00 Temperature 98 F Pulse Rate 60 59 L Respiratory Rate 20 19 Blood Pressure 153/67 H 141/104 H Pulse Oximetry 98 97 97 01/23/18 18:00 01/23/18 19:00 01/23/18 20:00 Temperature 98 F Pulse Rate 62 66 71 Respiratory Rate 24 23 24 Blood Pressure 158/69 H 142/61 H 154/66 H Pulse Oximetry 98 97 99 01/23/18 20:33 01/23/18 20:34 01/23/18 20:44 Temperature Pulse Rate 72 66 Respiratory Rate 31 H 26 H Blood Pressure 176/76 H 183/72 H Pulse Oximetry 99 98 100 01/23/18 21:00 01/23/18 22:00 01/23/18 23:00 Temperature Pulse Rate 71 62 65 Respiratory Rate 24 21 20 Blood Pressure 183/75 H 179/78 H 184/76 H Pulse Oximetry 99 96 97 01/23/18 23:45 01/24/18 00:00 01/24/18 01:00 Temperature 98.1 F Pulse Rate 65 57 L 77 Respiratory Rate 22 29 H Blood Pressure 166/72 H 206/81 H Pulse Oximetry 95 01/24/18 01:01 01/24/18 02:00 01/24/18 03:00 Temperature Pulse Rate 66 58 L 55 L Respiratory Rate 25 H 19 20 Blood Pressure 186/77 H 193/79 H 169/72 H Pulse Oximetry 96 97 94 L 01/24/18 04:00 01/24/18 05:00 01/24/18 06:00 Temperature 98 F Pulse Rate 53 L 54 L 54 L Respiratory Rate 20 19 17 Blood Pressure 165/72 H 179/78 H 196/95 H Pulse Oximetry 01/24/18 08:34 Temperature Pulse Rate Respiratory Rate Blood Pressure Pulse Oximetry 99 Intake & Output 01/23/18 01/24/18 01/24/18 18:59 06:59 18:59 Intake Total 880 / 880 1060 / 1060 Output Total 1300 / 1300 725 / 725 Balance -420 / -420 335 / 335 Intake: IV 100 / 100 Rocephin Inj 1,000 MG In NS Inj 100 / 100 100 ML @ 200 mls/hr IV.SIG Q24H [facility] Rx#:[id number] Oral 880 / 880 960 / 960 Output: Urine Amount (Catheter) 1300 / 1300 725 / 725 Indwelling Urethral Catheter 1300 / 1300 725 / 725 Other: Date of Last Bowel Movement 01/23/18 01/23/18 # Bowel Movements 2 1 Narrative: GENERAL: Well-nourished, obese well-developed patient. SKIN: Warm and dry. HEAD: Normocephalic. EYES: No scleral icterus. No injection or drainage. NECK: Supple, trachea midline. No JVD or lymphadenopathy. CARDIOVASCULAR: Regular rate and rhythm without murmurs, gallops, or rubs. RESPIRATORY: Breath sounds equal bilaterally. No accessory muscle use. GASTROINTESTINAL: Abdomen soft, non-tender, nondistended. EXTREMITIES: 1+ edema NEUROLOGICAL: Awake, alert, and oriented x 3. Non-focal. - Urinary Catheter Management Indwelling Urethral Catheter Cath placed during this visit: no Reason for continuing: Acute urinary retention Assessment and Plan - Assessment (1) Chronic kidney disease Code(s): N18.9 - Chronic kidney disease, unspecified Status: Acute (2) Diabetes Code(s): E11.9 - Type 2 diabetes mellitus without complications Status: Acute (3) Urinary tract infection Code(s): N39.0 - Urinary tract infection, site not specified Status: Acute (4) Hyperkalemia Code(s): E87.5 - Hyperkalemia Status: Acute (5) Acute hyperkalemia Code(s): E87.5 - Hyperkalemia Status: Acute (6) ANURADHA (acute kidney injury) Code(s): N17.9 - Acute kidney failure, unspecified Status: Acute - Plan Patient is seen in most likely acute renal failure and chronic kidney disease is associated with diabetic kidney disease and underlying kidney stone disease Urine showed contaminant Treated for UTI Kidney stones not seen on ultrasound possible body habitus Multiple stones was seen with CT scan is essential to keep her on sodium bicarbonate to keep her urine alkaline Patient does have proteinuria most likely associated with diabetic nephropathy, dietary modification loss of weight, salt restriction, potassium restriction, modest protein intake along with diabetic diet was recommended HA inhibitor could not be used due to severe hyperkalemia, potassium is better Follow BMP Follow immunofixation check urine immunofixation as well
[2018-01-24 12:43] LABS: Baso % (Auto) 0.7 % (0.0-2.0); Eos # (Auto) 0.4 th/mm3 (0.0-0.4); Eos % (Auto) 5.8 % (0.0-4.0); Hematocrit 29.9 % (35.0-46.0); Hemoglobin 9.8 gm/dL (11.6-15.3); Lymph # (Auto) 0.9 th/mm3 (1.0-4.8); Lymph % (Auto) 12.5 % (9.0-44.0); Mean Corpuscular HGB Conc 32.8 % (32.0-36.0); Mean Corpuscular Hemoglobin 28.3 pg (27.0-34.0); Mean Corpuscular Volume 86.3 fL (80.0-100.0); Mean Platelet Volume 9.5 fL (7.0-11.0); Mono # (Auto) 0.3 th/mm3 (0.0-0.9); Mono % (Auto) 4.9 % (0.0-8.0); Neut # (Auto) 5.3 th/mm3 (1.8-7.7); Neut % (Auto) 76.1 % (16.0-70.0); Platelet Count 192 th/mm3 (150-450); Red Blood Count 3.47 mil/mm3 (4.00-5.30); Red Cell Distribution Width 17.6 % (11.6-17.2)
[2018-01-24 13:07] LABS: Alanine Aminotransferase 25 U/L (10-53); Albumin 2.5 g/dL (3.4-5.0); Anion Gap 7 meq/L (5-15); Aspartate Aminotransferase 12 U/L (15-37); Blood Urea Nitrogen 54 mg/dL (7-18); Calcium 8.3 mg/dL (8.5-10.1); Chloride 114 meq/L (98-107); Glomerular Filtration Rate 26 mL/min (>89); Glucose,Random 178 mg/dL (74-106); Sodium 142 meq/L (136-145)
[2018-01-24 13:09] LABS: Alkaline Phosphatase 101 U/L (45-117); Total Protein 7.7 g/dL (6.4-8.2)
[2018-01-24] MEDS ORDERED: amLODIPine 5 MG Tablet PO ONE (15:15)
--- NOTE | 2018-01-25 09:42 | P.PN ---
Subjective Interval history: Patient feel better BP Still high start Hydralazine 100 mg PO BID. discharge plan soon blood in urine almost resolved. d/w Patient and RN at bed side. Physical Exam Vital signs: Vital Signs 01/24/18 10:14 01/24/18 10:22 01/24/18 11:00 Temperature Pulse Rate 61 57 L 59 L Respiratory Rate 16 19 18 Blood Pressure 175/71 H 168/65 H Pulse Oximetry 01/24/18 12:00 01/24/18 12:36 01/24/18 12:51 Temperature 98 F Pulse Rate 58 L 65 57 L Respiratory Rate 19 49 H 28 H Blood Pressure 207/79 H 175/67 H Pulse Oximetry 01/24/18 13:00 01/24/18 14:00 01/24/18 20:00 Temperature 97.4 F L Pulse Rate 58 L 60 59 L Respiratory Rate 22 21 20 Blood Pressure 178/75 H 137/64 Pulse Oximetry 98 01/25/18 00:00 01/25/18 08:00 Temperature 97.2 F L 97.3 F L Pulse Rate 47 L 54 L Respiratory Rate 17 16 Blood Pressure 174/75 H 184/71 H Pulse Oximetry 95 96 Intake & Output 01/24/18 01/25/18 01/25/18 18:59 06:59 18:59 Intake Total 340 / 340 Balance 340 / 340 Intake: IV 100 / 100 Rocephin Inj 1,000 MG In NS Inj 100 / 100 100 ML @ 200 mls/hr IV.SIG Q24H ISMAEL Rx#:[id number] Oral 240 / 240 Other: # Voids 1 3 Date of Last Bowel Movement 01/23/18 - Constitutional no acute distress, obese - Routine HEENT Exam Head: Present: normocephalic, atraumatic Eye: Present: EOMI, PERRL ENT: Present: mucous membranes moist - Routine Neck Exam Present: supple, full ROM - Routine Respiratory Exam Present: CTA bilaterally - Routine Cardiovascular Exam Present: RRR, S1, S2 - Routine Abdominal Exam Present: soft, normoactive bowel sounds, distended - Routine Extremities Exam Present: edema, full ROM - Routine Skin Exam Present: intact, dry, warm - Routine Neurological Exam Present: alert, oriented X3, CN II-XII intact, vision grossly intact, hearing grossly intact, normal speech - Detailed Neurological Exam: Coma Scale Eye Opening: Spontaneous Verbal Response: Oriented Motor Response: Obey commands [place] Coma Scale Total: 15 - Routine Psychiatric Exam Present: normal affect, normal thought process, good judgment - Urinary Catheter Management Indwelling Urethral Catheter Cath placed during this visit: yes, but has since been removed by the nurse Removal date: 01/24/18 Removal time: 15:00 Results - Labs CBC & Chem 7: 01/24/18 11:45 01/24/18 11:45 Laboratory Results - last 24 hr 01/24/18 01/24/18 01/24/18 11:45 11:45 12:29 WBC 7.0 RBC 3.47 L Hgb 9.8 L Hct 29.9 L MCV 86.3 MCH 28.3 MCHC 32.8 RDW 17.6 H Plt Count 192 MPV 9.5 Neut % (Auto) 76.1 H Lymph % (Auto) 12.5 [place] % (Auto) 4.9 Eos % (Auto) 5.8 H Baso % (Auto) 0.7 Neut # (Auto) 5.3 Lymph # (Auto) 0.9 L [place] # (Auto) 0.3 Eos # (Auto) 0.4 Baso # (Auto) 0.0 WBC Differential . Differential Comment Auto diff final Sodium 142 Potassium 5.0 Chloride 114 H Carbon Dioxide 21.0 Anion Gap 7 BUN 54 H Creatinine 1.97 H Estimated GFR 26 L POC Glucose 213 H Random Glucose 178 H Calcium 8.3 L Total Bilirubin 0.2 AST 12 L ALT 25 Alkaline Phosphatase 101 Total Protein 7.7 Albumin 2.5 L 01/24/18 01/24/18 01/25/18 17:27 20:12 00:05 WBC RBC Hgb Hct MCV MCH MCHC RDW Plt Count MPV Neut % (Auto) Lymph % (Auto) [place] % (Auto) Eos % (Auto) Baso % (Auto) Neut # (Auto) Lymph # (Auto) [place] # (Auto) Eos # (Auto) Baso # (Auto) WBC Differential Differential Comment Sodium Potassium Chloride Carbon Dioxide Anion Gap BUN Creatinine Estimated GFR POC Glucose 84 115 H 121 H Random Glucose Calcium Total Bilirubin AST ALT Alkaline Phosphatase Total Protein Albumin 01/25/18 08:17 WBC RBC Hgb Hct MCV MCH MCHC RDW Plt Count MPV Neut % (Auto) Lymph % (Auto) [place] % (Auto) Eos % (Auto) Baso % (Auto) Neut # (Auto) Lymph # (Auto) [place] # (Auto) Eos # (Auto) Baso # (Auto) WBC Differential Differential Comment Sodium Potassium Chloride Carbon Dioxide Anion Gap BUN Creatinine Estimated GFR POC Glucose 122 H Random Glucose Calcium Total Bilirubin AST ALT Alkaline Phosphatase Total Protein Albumin Microbiology 01/22/18 14:00 Clean Catch Urine Urine Culture - Final 50-100,000 cfu/mL mixed gram positive majo (probable contaminants) Assessment and Plan - Plan Assessment and Plan 62-year-old female morbidly obese admitted for Generalized weakness multifactorial Acute kidney injury Hyperkalemia on admission -6.7 ....now 5.0 Metabolic acidosis... resolved history of obstructive uropathy with nephrolithiasis however CT shows no obstruction -IV fluid. -Discontinue her p.o. diuretics of furosemide and hydrochlorothiazide -Patient received IV insulin, IV bicarb, and Kayexalate potassium dropped down to 5.0 -Patient received 1 L bolus. patient on IV fluid half normal saline with 1 amp of bicarbonate 100 cc/h. -CMP in a.m. -CT of abdomen reviewed shows no hydronephrosis .. nephrology input noted. Gross hematuria. much better ...Nephrolithiasis on CT left renal pelvis ...History of lithotripsies in the past Urinary tract infection -Follow urine culture... probable contamination. - patient on ceftriaxone 1 g every 24 hours - If no improvement in renal functions and gross hematuria persist- will consult her urologist Dr. Rosenbaum in am Hypertension uncontrolled - patient on amlodipine 10 mg daily. -As needed clonidine with parameters, Add Hydralazine 100 mg PO BID. Diabetes type 2 - checked hemoglobin A1c...8.2... blood sugar monitoring ...Discontinue Januvia Tinea cruris right inguinal area - on nystatin cream twice a day History of endometrial cancer - outpatient follow-up with [employer] oncology Dr. Lakhani. Right breast Mass seen on CT... OP US of the breast Hold off on chemical prophylaxis for now with gross hematuria. PT eval and treat Discharge plan soon. Check CBC with diff CMP in AM.
[2018-01-25] MEDS: amLODIPine 5 MG Tablet PO SCH (09:51)
[2018-01-25] MEDS: Insulin NovoLOG Aspart Correctional Sugar Inj SQ SCH ×3 (10:34→17:09)
[2018-01-25 11:40] LABS: Baso % (Auto) 0.6 % (0.0-2.0); Eos # (Auto) 0.4 th/mm3 (0.0-0.4); Eos % (Auto) 6.1 % (0.0-4.0); Hematocrit 32.6 % (35.0-46.0); Hemoglobin 10.5 gm/dL (11.6-15.3); Lymph # (Auto) 0.8 th/mm3 (1.0-4.8); Lymph % (Auto) 11.6 % (9.0-44.0); Mean Corpuscular HGB Conc 32.3 % (32.0-36.0); Mean Corpuscular Hemoglobin 28.1 pg (27.0-34.0); Mean Platelet Volume 9.5 fL (7.0-11.0); Mono # (Auto) 0.4 th/mm3 (0.0-0.9); Mono % (Auto) 5.5 % (0.0-8.0); Neut # (Auto) 5.4 th/mm3 (1.8-7.7); Neut % (Auto) 76.2 % (16.0-70.0); Platelet Count 208 th/mm3 (150-450); Red Blood Count 3.75 mil/mm3 (4.00-5.30); Red Cell Distribution Width 18.1 % (11.6-17.2); White Blood Count 7.1 th/mm3 (4.0-11.0)
[2018-01-25 12:12] LABS: Albumin 2.5 g/dL (3.4-5.0); Anion Gap 7 meq/L (5-15); Aspartate Aminotransferase 13 U/L (15-37); Blood Urea Nitrogen 49 mg/dL (7-18); Calcium 8.5 mg/dL (8.5-10.1); Carbon Dioxide 21.9 meq/L (21.0-32.0); Chloride 112 meq/L (98-107); Glomerular Filtration Rate 26 mL/min (>89); Glucose,Random 165 mg/dL (74-106); Potassium 4.7 meq/L (3.5-5.1); Sodium 141 meq/L (136-145)
[2018-01-25 12:15] LABS: Alanine Aminotransferase 24 U/L (10-53); Alkaline Phosphatase 108 U/L (45-117); Total Protein 8.2 g/dL (6.4-8.2)
[2018-01-25] MEDS: Sodium Bicarbonate 650 MG Tablet PO SCH (13:27)
[2018-01-25 13:50] LABS: Anti-Nuclear Antibody Screen Pos (Neg)
--- NOTE | 2018-01-25 20:14 | P.PNNP ---
Subjective Interval history: Patient transferred to medical floor Physical Exam Vital signs: Vital Signs 01/25/18 00:00 01/25/18 08:00 01/25/18 12:00 Temperature 97.2 F L 97.3 F L 97.4 F L Pulse Rate 47 L 54 L 61 Respiratory Rate 17 16 18 Blood Pressure 174/75 H 184/71 H 193/85 H Pulse Oximetry 95 96 95 01/25/18 16:00 Temperature 97.5 F L Pulse Rate 57 L Respiratory Rate 16 Blood Pressure 177/75 H Pulse Oximetry 98 Intake & Output 01/25/18 01/25/18 01/26/18 06:59 18:59 06:59 Intake Total 340 / 340 920 / 920 Balance 340 / 340 920 / 920 Intake: IV 100 / 100 Rocephin Inj 1,000 MG In NS Inj 100 / 100 100 ML @ 200 mls/hr IV.SIG Q24H ISMAEL Rx#:[id number] Oral 240 / 240 920 / 920 Other: # Voids 3 5 # Bowel Movements 1 Narrative: GENERAL: Well-nourished, obese well-developed patient. SKIN: Warm and dry. HEAD: Normocephalic. EYES: No scleral icterus. No injection or drainage. NECK: Supple, trachea midline. No JVD or lymphadenopathy. CARDIOVASCULAR: Regular rate and rhythm without murmurs, gallops, or rubs. RESPIRATORY: Breath sounds equal bilaterally. No accessory muscle use. GASTROINTESTINAL: Abdomen soft, non-tender, nondistended. EXTREMITIES: 1+ edema NEUROLOGICAL: Awake, alert, and oriented x 3. Non-focal. - Urinary Catheter Management Indwelling Urethral Catheter Cath placed during this visit: yes, but has since been removed by the nurse Reason for continuing: Acute urinary retention Removal date: 01/24/18 Removal time: 15:00 Assessment and Plan - Assessment (1) Chronic kidney disease Code(s): N18.9 - Chronic kidney disease, unspecified Status: Acute (2) Diabetes Code(s): E11.9 - Type 2 diabetes mellitus without complications Status: Acute (3) Urinary tract infection Code(s): N39.0 - Urinary tract infection, site not specified Status: Acute (4) Hyperkalemia Code(s): E87.5 - Hyperkalemia Status: Acute (5) Acute hyperkalemia Code(s): E87.5 - Hyperkalemia Status: Acute (6) ANURADHA (acute kidney injury) Code(s): N17.9 - Acute kidney failure, unspecified Status: Acute - Plan Patient is seen in most likely acute renal failure and chronic kidney disease is associated with diabetic kidney disease and underlying kidney stone disease Patient has diabetic kidney disease proteinuria, MOIRA is positive follow titers, blood pressure and diabetes control discussed Follow-up as outpatient okay to discharge from nephrology point of view
[2018-01-26] MEDS: Insulin NovoLOG Aspart Correctional Sugar Inj SQ SCH ×5 (00:04→20:57)
[2018-01-26] MEDS: Sodium Bicarbonate 650 MG Tablet PO SCH ×3 (00:05→20:57)
[2018-01-26] MEDS: amLODIPine 5 MG Tablet PO SCH (09:40)
--- NOTE | 2018-01-26 11:15 | P.PN ---
Subjective Interval history: Patient feel better BP getting better. no acute issue Nephrology input noted. Physical Exam Vital signs: Vital Signs 01/25/18 12:00 01/25/18 16:00 01/25/18 19:07 Temperature 97.4 F L 97.5 F L 98.3 F Pulse Rate 61 57 L 61 Respiratory Rate 18 16 18 Blood Pressure 193/85 H 177/75 H 184/72 H Pulse Oximetry 95 98 97 01/25/18 23:07 01/26/18 03:49 01/26/18 04:07 Temperature 97.5 F L 97.4 F L Pulse Rate 63 61 Respiratory Rate 18 18 18 Blood Pressure 161/67 H 159/70 H Pulse Oximetry 96 95 01/26/18 08:00 Temperature 97.1 F L Pulse Rate 57 L Respiratory Rate 18 Blood Pressure 165/75 H Pulse Oximetry 96 Intake & Output 01/25/18 01/26/18 01/26/18 18:59 06:59 18:59 Intake Total 920 / 920 580 / 580 Balance 920 / 920 580 / 580 Weight 124 kg Intake: IV 100 / 100 Rocephin Inj 1,000 MG In NS Inj 100 / 100 100 ML @ 200 mls/hr IV.SIG Q24H ISMAEL Rx#:[id number] Oral 920 / 920 480 / 480 Other: # Voids 5 1 Date of Last Bowel Movement 01/25/18 # Bowel Movements 1 4 Weight On Admission 123.831 kg - Constitutional no acute distress, obese - Routine HEENT Exam Head: Present: normocephalic, atraumatic Eye: Present: EOMI, PERRL ENT: Present: mucous membranes moist - Routine Neck Exam Present: supple, full ROM - Routine Respiratory Exam Present: CTA bilaterally - Routine Cardiovascular Exam Present: RRR, S1, S2 - Routine Abdominal Exam Present: soft, normoactive bowel sounds - Routine Extremities Exam Present: full ROM - Routine Skin Exam Present: intact, dry, warm - Routine Neurological Exam Present: alert, oriented X3, CN II-XII intact, moving all extremities, normal speech - Detailed Neurological Exam: Coma Scale Eye Opening: Spontaneous Verbal Response: Oriented Motor Response: Obey commands [place] Coma Scale Total: 15 - Routine Psychiatric Exam Present: normal affect, normal thought process, good judgment - Urinary Catheter Management Indwelling Urethral Catheter Cath placed during this visit: yes, but has since been removed by the nurse Reason for continuing: Acute urinary retention Removal date: 01/24/18 Removal time: 15:00 Results - Labs CBC & Chem 7: 01/25/18 10:46 01/25/18 10:46 Laboratory Results - last 24 hr 01/23/18 01/24/18 01/25/18 15:07 04:56 10:46 WBC 7.1 RBC 3.75 L Hgb 10.5 L Hct 32.6 L MCV 87.0 MCH 28.1 MCHC 32.3 RDW 18.1 H Plt Count 208 MPV 9.5 Neut % (Auto) 76.2 H Lymph % (Auto) 11.6 [place] % (Auto) 5.5 Eos % (Auto) 6.1 H Baso % (Auto) 0.6 Neut # (Auto) 5.4 Lymph # (Auto) 0.8 L [place] # (Auto) 0.4 Eos # (Auto) 0.4 Baso # (Auto) 0.0 WBC Differential . Differential Comment Auto diff final Sodium Potassium Chloride Carbon Dioxide Anion Gap BUN Creatinine Estimated GFR POC Glucose Random Glucose Calcium Total Bilirubin AST ALT Alkaline Phosphatase Total Protein Albumin ALETHEA Interpretation MOIRA Screen Pos H 01/25/18 01/25/18 01/25/18 10:46 11:58 16:54 WBC RBC Hgb Hct MCV MCH MCHC RDW Plt Count MPV Neut % (Auto) Lymph % (Auto) [place] % (Auto) Eos % (Auto) Baso % (Auto) Neut # (Auto) Lymph # (Auto) [place] # (Auto) Eos # (Auto) Baso # (Auto) WBC Differential Differential Comment Sodium 141 Potassium 4.7 Chloride 112 H Carbon Dioxide 21.9 Anion Gap 7 BUN 49 H Creatinine 1.93 H Estimated GFR 26 L POC Glucose 180 H 120 H Random Glucose 165 H Calcium 8.5 Total Bilirubin 0.2 AST 13 L ALT 24 Alkaline Phosphatase 108 Total Protein 8.2 Albumin 2.5 L ALETHEA Interpretation MOIRA Screen 01/25/18 01/25/18 01/26/18 21:18 23:51 07:49 WBC RBC Hgb Hct MCV MCH MCHC RDW Plt Count MPV Neut % (Auto) Lymph % (Auto) [place] % (Auto) Eos % (Auto) Baso % (Auto) Neut # (Auto) Lymph # (Auto) [place] # (Auto) Eos # (Auto) Baso # (Auto) WBC Differential Differential Comment Sodium Potassium Chloride Carbon Dioxide Anion Gap BUN Creatinine Estimated GFR POC Glucose 173 H 163 H 136 H Random Glucose Calcium Total Bilirubin AST ALT Alkaline Phosphatase Total Protein Albumin ALETHEA Interpretation MOIRA Screen Assessment and Plan - Plan Assessment and Plan 62-year-old female morbidly obese admitted for Generalized weakness multifactorial Acute kidney injury Hyperkalemia on admission -6.7 ....now 5.0 Metabolic acidosis... resolved history of obstructive uropathy with nephrolithiasis however CT shows no obstruction -IV fluid. -Discontinue her p.o. diuretics of furosemide and hydrochlorothiazide -Patient received IV insulin, IV bicarb, and Kayexalate potassium dropped down to 5.0 -Patient received 1 L bolus. patient on IV fluid half normal saline with 1 amp of bicarbonate 100 cc/h. -CMP in a.m. -CT of abdomen reviewed shows no hydronephrosis .. nephrology input noted. Gross hematuria. much better ...Nephrolithiasis on CT left renal pelvis ...History of lithotripsies in the past Urinary tract infection -Follow urine culture... probable contamination. - patient on ceftriaxone 1 g every 24 hours - If no improvement in renal functions and gross hematuria persist- will consult her urologist Dr. Rosenbaum in am Hypertension uncontrolled - patient on amlodipine 10 mg daily. -As needed clonidine with parameters, Increase Hydralazine 100 mg PO TID. Diabetes type 2 - checked hemoglobin A1c...8.2... blood sugar monitoring ...Discontinue Januvia Tinea cruris right inguinal area - on nystatin cream twice a day History of endometrial cancer - outpatient follow-up with [employer] oncology Dr. Lakhani. Right breast Mass seen on CT... OP US of the breast Hold off on chemical prophylaxis for now with gross hematuria. PT eval and treat Discharge plan soon. Check CBC with diff CMP in AM.
--- NOTE | 2018-01-26 14:06 | P.DCO ---
- Diagnosis (1) Chronic kidney disease Status: Acute (2) Diabetes Status: Acute (3) Urinary tract infection Status: Acute - Physical Therapy Order: Evaluate and treat, Improve ambulation - Occupational Therapy Order: Evaluate and treat - Home Health Nursing Order: Medical education, Signs/symptoms of disease process, Diabetic education , Nursing assessment with vital signs - Case Management Consult Yes - Certification I have seen patient Gianna Ron on 01/26/18. My clinical findings support the need for the requested home health care services because: Limited mobility due to disease progression I certify that my clinical findings support that this patient is homebound because: Unsafe to leave home unassisted, Unable to use public transportation
[2018-01-26 14:15] LABS: Baso % (Auto) 0.6 % (0.0-2.0); Eos # (Auto) 0.5 th/mm3 (0.0-0.4); Eos % (Auto) 5.7 % (0.0-4.0); Hematocrit 31.6 % (35.0-46.0); Hemoglobin 10.4 gm/dL (11.6-15.3); Lymph % (Auto) 12.2 % (9.0-44.0); Mean Corpuscular HGB Conc 33.1 % (32.0-36.0); Mean Corpuscular Hemoglobin 28.5 pg (27.0-34.0); Mean Corpuscular Volume 86.3 fL (80.0-100.0); Mean Platelet Volume 9.4 fL (7.0-11.0); Mono # (Auto) 0.4 th/mm3 (0.0-0.9); Mono % (Auto) 5.1 % (0.0-8.0); Neut # (Auto) 6.4 th/mm3 (1.8-7.7); Neut % (Auto) 76.4 % (16.0-70.0); Platelet Count 195 th/mm3 (150-450); Red Blood Count 3.66 mil/mm3 (4.00-5.30); Red Cell Distribution Width 17.9 % (11.6-17.2); White Blood Count 8.4 th/mm3 (4.0-11.0)
[2018-01-26 14:37] LABS: Albumin 2.6 g/dL (3.4-5.0); Anion Gap 9 meq/L (5-15); Aspartate Aminotransferase 14 U/L (15-37); Blood Urea Nitrogen 50 mg/dL (7-18); Calcium 8.7 mg/dL (8.5-10.1); Carbon Dioxide 21.3 meq/L (21.0-32.0); Chloride 110 meq/L (98-107); Glomerular Filtration Rate 26 mL/min (>89); Potassium 4.9 meq/L (3.5-5.1); Sodium 140 meq/L (136-145)
[2018-01-26 14:43] LABS: Alanine Aminotransferase 24 U/L (10-53); Alkaline Phosphatase 105 U/L (45-117); Glucose,Random 136 mg/dL (74-106); Total Protein 8.4 g/dL (6.4-8.2)
[2018-01-27] MEDS: Sodium Bicarbonate 650 MG Tablet PO SCH (08:20)
[2018-01-27] MEDS: amLODIPine 5 MG Tablet PO SCH ×2 (08:22→09:05)
[2018-01-27 08:39] VITALS: RESP 20
[2018-01-27] MEDS: Insulin NovoLOG Aspart Correctional Sugar Inj SQ SCH ×2 (09:05→12:38)
[2018-01-27 13:27] VITALS: TEMP 97.2; O2SAT 98
--- NOTE | 2018-01-27 13:35 | P.DIET ---
Nutritional Evaluation Type of nutrition evaluation: initial Screening comments: diet education Subjective Subjective Comments: Pt was interested in understanding renal + DM diet. Pt was receptive and asked questions. Objective - Diagnosis DM, UTI Assessment Assessment: Pt requested to speak with RD about her renal and diabetic diet. RD provided renal and diabetic handout materials for pt to read. Pt understood how both diets worked after RD visit. Pt mentioned she wanted to join a diabetes education class to learn more on controlling her blood glucose. RD available for any additional questions. Recommendations: RD available for any additional questions.
--- NOTE | 2018-01-27 13:44 | P.PN ---
Subjective Interval history: Patient feel better ok to discharge home today d/w Dr Mendoza ok to discharge per nephrology and continue lasix and HCTZ. need to follow up with Nephrology and PCP in 1 week. Physical Exam Vital signs: Vital Signs 01/26/18 16:20 01/26/18 20:00 01/27/18 00:45 Temperature 97.6 F 97.3 F L 97.3 F L Pulse Rate 60 60 57 L Respiratory Rate 18 18 18 Blood Pressure 156/70 H 164/72 H 153/69 H Pulse Oximetry 96 97 98 01/27/18 04:00 01/27/18 05:30 01/27/18 08:00 Temperature 97.3 F L 97.5 F L Pulse Rate 56 L 58 L Respiratory Rate 18 17 20 Blood Pressure 156/67 H 171/71 H Pulse Oximetry 96 97 01/27/18 09:07 01/27/18 12:00 Temperature 97.2 F L Pulse Rate 58 L 56 L Respiratory Rate 20 Blood Pressure 152/92 H 185/73 H Pulse Oximetry 98 Intake & Output 01/26/18 01/27/18 01/27/18 18:59 06:59 18:59 Intake Total 960 / 960 1060 / 1060 Balance 960 / 960 1060 / 1060 Weight 123.9 kg Intake: IV 100 / 100 Rocephin Inj 1,000 MG In NS Inj 100 / 100 100 ML @ 200 mls/hr IV.SIG Q24H ISMAEL Rx#:[id number] Oral 960 / 960 960 / 960 Other: # Voids 4 2 Date of Last Bowel Movement 01/25/18 01/25/18 01/25/18 # Bowel Movements 1 - Constitutional no acute distress - Routine HEENT Exam Head: Present: normocephalic, atraumatic Eye: Present: EOMI, PERRL ENT: Present: mucous membranes moist - Routine Neck Exam Present: supple, full ROM - Routine Respiratory Exam Present: CTA bilaterally - Routine Cardiovascular Exam Present: RRR, S1, S2 - Routine Abdominal Exam Present: soft, normoactive bowel sounds - Routine Extremities Exam Present: edema, full ROM - Routine Skin Exam Present: intact, dry, warm - Routine Neurological Exam Present: alert, oriented X3, CN II-XII intact, moving all extremities, vision grossly intact, hearing grossly intact, normal speech - Detailed Neurological Exam: Coma Scale Eye Opening: Spontaneous Verbal Response: Oriented Motor Response: Obey commands [place] Coma Scale Total: 15 - Routine Psychiatric Exam Present: normal affect, normal thought process, good judgment - Urinary Catheter Management Indwelling Urethral Catheter Cath placed during this visit: yes, but has since been removed by the nurse Reason for continuing: Acute urinary retention Removal date: 01/24/18 Removal time: 15:00 Results - Labs CBC & Chem 7: 01/26/18 13:02 01/26/18 13:02 Laboratory Results - last 24 hr 01/24/18 01/26/18 01/26/18 11:45 13:02 13:02 WBC 8.4 RBC 3.66 L Hgb 10.4 L Hct 31.6 L MCV 86.3 MCH 28.5 MCHC 33.1 RDW 17.9 H Plt Count 195 MPV 9.4 Neut % (Auto) 76.4 H Lymph % (Auto) 12.2 [place] % (Auto) 5.1 Eos % (Auto) 5.7 H Baso % (Auto) 0.6 Neut # (Auto) 6.4 Lymph # (Auto) 1.0 [place] # (Auto) 0.4 Eos # (Auto) 0.5 H Baso # (Auto) 0.0 WBC Differential . Differential Comment Auto diff final Sodium 140 Potassium 4.9 Chloride 110 H Carbon Dioxide 21.3 Anion Gap 9 BUN 50 H Creatinine 1.96 H Estimated GFR 26 L POC Glucose Random Glucose 136 H Calcium 8.7 Total Bilirubin 0.2 AST 14 L ALT 24 Alkaline Phosphatase 105 Total Protein 8.4 H Albumin 2.6 L Anti-Proteinase 3 Less than 1.0 Anti-Myeloperoxidase Less than 1.0 01/26/18 01/26/18 01/27/18 16:54 20:00 08:27 WBC RBC Hgb Hct MCV MCH MCHC RDW Plt Count MPV Neut % (Auto) Lymph % (Auto) [place] % (Auto) Eos % (Auto) Baso % (Auto) Neut # (Auto) Lymph # (Auto) [place] # (Auto) Eos # (Auto) Baso # (Auto) WBC Differential Differential Comment Sodium Potassium Chloride Carbon Dioxide Anion Gap BUN Creatinine Estimated GFR POC Glucose 137 H 179 H 133 H Random Glucose Calcium Total Bilirubin AST ALT Alkaline Phosphatase Total Protein Albumin Anti-Proteinase 3 Anti-Myeloperoxidase 01/27/18 12:22 WBC RBC Hgb Hct MCV MCH MCHC RDW Plt Count MPV Neut % (Auto) Lymph % (Auto) [place] % (Auto) Eos % (Auto) Baso % (Auto) Neut # (Auto) Lymph # (Auto) [place] # (Auto) Eos # (Auto) Baso # (Auto) WBC Differential Differential Comment Sodium Potassium Chloride Carbon Dioxide Anion Gap BUN Creatinine Estimated GFR POC Glucose 172 H Random Glucose Calcium Total Bilirubin AST ALT Alkaline Phosphatase Total Protein Albumin Anti-Proteinase 3 Anti-Myeloperoxidase Assessment and Plan - Assessment (1) Chronic kidney disease Code(s): N18.9 - Chronic kidney disease, unspecified Status: Acute (2) Diabetes Code(s): E11.9 - Type 2 diabetes mellitus without complications Status: Acute (3) Urinary tract infection Code(s): N39.0 - Urinary tract infection, site not specified Status: Acute - Plan Assessment and Plan 62-year-old female morbidly obese admitted for Generalized weakness multifactorial Acute kidney injury Hyperkalemia on admission -6.7 ....now 5.0 Metabolic acidosis... resolved history of obstructive uropathy with nephrolithiasis however CT shows no obstruction -IV fluid. -Discontinue her p.o. diuretics of furosemide and hydrochlorothiazide -Patient received IV insulin, IV bicarb, and Kayexalate potassium dropped down to 5.0 -Patient received 1 L bolus. patient on IV fluid half normal saline with 1 amp of bicarbonate 100 cc/h. -CMP in a.m. -CT of abdomen reviewed shows no hydronephrosis .. nephrology input noted. Gross hematuria. much better ...Nephrolithiasis on CT left renal pelvis ...History of lithotripsies in the past Urinary tract infection -Follow urine culture... probable contamination. - patient on ceftriaxone 1 g every 24 hours - If no improvement in renal functions and gross hematuria persist- will consult her urologist Dr. Rosenbaum in am Hypertension uncontrolled - patient on amlodipine 10 mg daily. -As needed clonidine with parameters, Increase Hydralazine 100 mg PO TID. Diabetes type 2 - checked hemoglobin A1c...8.2... blood sugar monitoring ...Discontinue Januvia Tinea cruris right inguinal area - on nystatin cream twice a day History of endometrial cancer - outpatient follow-up with [employer] oncology Dr. Lakhani. Right breast Mass seen on CT... OP US of the breast Hold off on chemical prophylaxis for now with gross hematuria. PT eval and treat Discharge plan soon. Check CBC with diff CMP in AM.
[2018-01-27 14:41] VITALS: BP 132/62; PULSE 58
--- NOTE | 2018-01-27 15:33 | MD ---
cc: Jose Daniel Higgins MD DATE OF DISCHARGE: 01/27/2018 DATE OF ADMISSION: 01/22/2018 DATE OF DISCHARGE: 01/27/2018 Okay to discharge the patient home. CONDITION AT THE TIME OF DISCHARGE: Satisfactory. ACTIVITY: As tolerated. DIET: Cardiac diet. ALLERGIES: OPIOID, MORPHINE, ANALOGS, MEPERIDINE AND RELATED PRODUCTS. DISCHARGE MEDICATIONS: Include amlodipine 5 mg p.o. daily, hydralazine 100 mg 3 times a day, Nystatin topical application twice a day, albuterol inhaler 1 puff inhalation q.4 hours, folic acid 1 mg p.o. daily, furosemide 40 mg p.o. daily, hydrochlorothiazide 25 mg p.o. daily, Januvia 50 mg p.o. daily. ADMITTING DIAGNOSES: Hyperkalemia, acute renal failure. DISCHARGE DIAGNOSES: Hyperkalemia, resolved. Acute renal failure, improved. Metabolic acidosis, resolved. History of obstructive uropathy with nephrolithiasis. CT shows no obstruction. Gross hematuria, which is improved. Urinary tract infection. The patient was given antibiotic for urinary tract infection during hospital stay. Hypertension, uncontrolled. Patient will start to increase amlodipine from 5 mg to 10 mg and started on hydralazine 100 mg 3 times a day. Tinea cruris, right inguinal area, started on nystatin. History of endometrial cancer. The patient seeing [employer], Dr. Lakhani. Right breast mass on CT scan. Ultrasound of the breast was done, and the patient aware of this mass. Per patient the biopsy was done and it was benign. HOSPITAL COURSE: This is a very pleasant 62-year-old female with obesity, came to the ER at [place], diagnosed with hyperkalemia feeling weak and tired and had metabolic acidosis, acute renal failure. The patient was on furosemide and hydrochlorothiazide, which was discontinued temporarily. Dr. Andrea Mendoza, nephrology, consulted, and the patient was discharged on furosemide and hydrochlorothiazide per Dr. Mendoza's recommendation. The patient got IV fluid during the hospital stay. The patient got Kayexalate and bicarbonate drip. The patient remained stable. No acute event happened. The patient was given IV fluid. The patient diagnosed with a urinary tract infection, but culture gross contamination. The patient came in with a hemoglobin of 10.1. Patient had hyperkalemia. The patient's INR was 1.0. APTT was 26.0. The patient's sugar better controlled during hospital stay. The patient's urinalysis showed urinary tract infection. The patient's random total protein is 310.9, which is high. Protein-creatinine ratio 4.86. IgG level was high 2030. [facility] screen positive. Rest of the labs are pending. [place] light chain 495, high. Lambda light chain 283, high. The patient's chest x-ray was done, shows stable chest demonstrating cardiomegaly, but no evidence of airspace diseases or significant congestion. CT abdomen and pelvis was done, shows multiple left renal calculi with several stones identified in the renal pelvis. There is no significant hydronephrosis, healed granulomatous disease, nodular lobulated mass is again evident in the right breast. A small fat-containing umbilical hernia, status post hysterectomy. Abdominal ultrasound was done, shows echogenic kidney consistent with medical renal disease. The patient's known left-sided renal stones are not well demonstrated on ultrasound and may be obscured by technique required for body habitus. No sonographic evidence of obstructive uropathy. The patient advised to follow up with nephrology and primary care doctor. Further details in the medical record. Jose Daniel Higgins MD EA/benita , 03:10 PM , 03:19 PM
== END 2018-01-27 15:04 | disposition home health service (06) ==
LOC: NEPC 12:06 → NEDA 16:11 → N03 18:25 → N06 01-24 14:50
PROVIDERS: ADMIT Family Medicine; ATTEND Family Medicine